=== PATIENT | female | born 1995 | race Caucasian/White ===

== ENCOUNTER 2017-04-28 21:32 | Emergency (ER) | payer OTHER ==
[2017-04-28] MEDS ORDERED: SODIUM CHLORIDE 0.9% 1,000 ML IV STA (22:13)
[2017-04-28] MEDS ORDERED: SODIUM CHLORIDE 0.9% 2,000 ML IV STA (22:13)
[2017-04-28] MEDS ORDERED: ONDANSETRON 4 MG/2 ML VIAL IVP STA (22:13)
--- NOTE | 2017-04-28 22:43 | ED ---
General Adult HPI - General Chief complaint: Nausea/Vomiting/Diarrhea Stated complaint: Cough Time Seen by Provider: 04/28/17 22:01 Source: patient, RN notes reviewed, old records reviewed Mode of arrival: ambulatory Limitations: no limitations - History of Present Illness Initial comments: Plain history of present illness this is a 22-year-old female who is approximately 9 weeks area she was in emergency room several weeks ago at that time her beta was 350 repeated 2 days later was over 700. The patient has not yet followed up with her first [facility] visit. Patient is 3 para 2. Her complaint is for the last several weeks she's had nausea and vomiting most all day long. No blood noted in the vomit. No vaginal discharge or bleeding or spotting. - Related Data Previous Rx's Medication Instructions Recorded Ondansetron Odt [Zofran Odt] 4 mg PO Q8HR PRN #10 tab 04/29/17 Allergies Allergy/AdvReac Type Severity Reaction Status Date / Time codeine phosphate AdvReac Yeast Verified 04/28/17 21:57 [From Tylenol-Codeine #3] Infection diphenhydramine AdvReac ANXIETY Verified 04/28/17 21:57 [From Benadryl] prochlorperazine maleate AdvReac Anxiety Verified 04/28/17 21:57 [From Compazine] Review of Systems ROS Statement: Those systems with pertinent positive or pertinent negative responses have been documented in the HPI. Of systems. No headache or visual acuity changes no chest pain or shortness of breath no abdominal pain just nausea and vomiting for several weeks. This is her third and she's had morning sickness that lasted all day long for the last several weeks. All systems are reviewed. Past medical problems nonsmoker nondrinker. Past history of anxiety and panic attacks other uncontrolled this time. Surgeries include adenoids and tonsils. Family history noncontributory. Patient has ALLERGIES to codeine and diphenhydramine and prochlorperazine. ROS Other: All systems not noted in ROS Statement are negative. Past Medical History Past Medical History: No Reported History Additional Past Medical History / Comment(s): panic attacks History of Any Multi-Drug Resistant Organisms: None Reported Past Surgical History: Adenoidectomy, Tonsillectomy Past Psychological History: Anxiety Smoking Status: Never smoker Past Alcohol Use History: None Reported Past Drug Use History: None Reported General Exam - General Exam Comments Initial Comments: General: The patient is awake and alert, in no distress, and does not appear acutely ill. Infrequent nausea and vomiting for the past several weeks. Vital signs shows tarry 97.0 pulse 94 respiratory rate 18 pulse ox on percent room air blood pressure 128/75 Eye: Pupils are equal, round and reactive to light, extra-ocular movements are intact ; there is normal conjunctiva bilaterally. No signs of icterus. Ears, nose, mouth and throat: There are moist mucous membranes and no oral lesions. Neck: The neck is supple, there is no tenderness no anterior cervical lymphadenopathy , no enlarged thyroid. Cardiovascular: There is a regular rate and rhythm. No murmur, rub or gallop is appreciated. Respiratory: Lungs are clear to auscultation, respirations are non-labored, breath sounds are equal. No wheezes, stridor, rales, or rhonchi. Gastrointestinal: Soft, non-distended, non-tender abdomen without masses or organomegaly noted. There is no rebound or guarding present. No CVA tenderness. Bowel sounds are unremarkable. No vomiting for several weeks. Back: There is no tenderness to palpation in the midline. There is no obvious deformity. No rashes noted. Musculoskeletal: Normal ROM, no tenderness, There is no pedal edema. There is no calf tenderness or swelling. Sensation intact. Neurological: Neuro deficits, no numbness no tingling. Balance is good. Skin: Skin is warm and dry and no rashes or lesions are noted. Psychiatric: history of anxiety but no problems now. Limitations: no limitations Course Vital Signs 04/28/17 04/28/17 04/29/17 21:54 23:35 00:41 Temperature 97 F L 97.5 F L 97.8 F Pulse Rate 94 78 80 Respiratory 18 19 19 Rate Blood Pressure 128/75 124/66 136/60 O2 Sat by Pulse 100 95 99 Oximetry Medical Decision Making - Medical Decision Making Medical decision making; patient's here because of hyperemesis gravidarum for the past several weeks. Patient bleach approximately 9-10 weeks . The patient's labs show white count of 10.4 hemoglobin 14 hematocrit of 42 with a BUN of 6 creatinine 0.6 GFR greater than 60. Glucose 96 and potassium 3.9. She'll receive 2 L of fluid. As well as IV zofran. Be discharged home with Zofran. Advised to follow-up with her [facility]. - Lab Data Result diagrams: 04/28/17 22:32 04/28/17 22:32 Lab Results 04/28/17 04/28/17 Range/Units 22:32 22:32 WBC 10.4 (3.8-10.6) k/uL RBC 4.61 (3.80-5.40) m/uL Hgb 14.3 (11.4-16.0) gm/dL Hct 42.7 (34.0-46.0) % MCV 92.6 (80.0-100.0) fL MCH 31.0 (25.0-35.0) pg MCHC 33.5 (31.0-37.0) g/dL RDW 14.4 (11.5-15.5) % Plt Count 242 (150-450) k/uL Neutrophils % 72 % Lymphocytes % 20 % Monocytes % 4 % Eosinophils % 2 % Basophils % 1 % Neutrophils # 7.5 (1.3-7.7) k/uL Lymphocytes # 2.1 (1.0-4.8) k/uL Monocytes # 0.4 (0-1.0) k/uL Eosinophils # 0.3 (0-0.7) k/uL Basophils # 0.1 (0-0.2) k/uL Sodium 139 (137-145) mmol/L Potassium 3.9 (3.5-5.1) mmol/L Chloride 106 (98-107) mmol/L Carbon Dioxide 24 (22-30) mmol/L Anion Gap 9 mmol/L BUN 6 L (7-17) mg/dL Creatinine 0.60 (0.52-1.04) mg/dL Est GFR (MDRD) Af Amer >60 (>60 ml/min/1.73 sqM) Est GFR (MDRD) Non-Af >60 (>60 ml/min/1.73 sqM) Glucose 96 (74-99) mg/dL Calcium 9.4 (8.4-10.2) mg/dL Total Bilirubin 1.1 (0.2-1.3) mg/dL AST 28 (14-36) U/L ALT 61 H (9-52) U/L Alkaline Phosphatase 72 (38-126) U/L Total Protein 6.9 (6.3-8.2) g/dL Albumin 3.9 (3.5-5.0) g/dL Disposition Clinical Impression: Hyperemesis gravidarum before end of 22 week gestation with carbohydrate depletion Disposition: HOME SELF-CARE Condition: Fair Instructions: Acute Nausea and Vomiting (ED) Additional Instructions: Zofran for nausea advanced diet follow-up [facility] Prescriptions: Ondansetron Odt [Zofran Odt] 4 mg PO Q8HR PRN #10 tab PRN Reason: Nausea Referrals: Johanna Cool MD [Primary Care Provider] - 1-2 days Time of Disposition: 00:51
[2017-04-28 22:45] LABS: Basophils # (A) 0.1 k/uL (0-0.2); Basophils % (A) 1 %; Eosinophils # (A) 0.3 k/uL (0-0.7); Eosinophils % (A) 2 %; HCT 42.7 % (34.0-46.0); HGB 14.3 gm/dL (11.4-16.0); Lymphocytes # (A) 2.1 k/uL (1.0-4.8); Lymphocytes % (A) 20 %; MCHC 33.5 g/dL (31.0-37.0); MCV 92.6 fL (80.0-100.0); Mean Platelet Volume 7.9; Monocytes # (A) 0.4 k/uL (0-1.0); Monocytes % (A) 4 %; Neutrophils # (A) 7.5 k/uL (1.3-7.7); Neutrophils % (A) 72 %; Platelet Count 242 k/uL (150-450); RBC 4.61 m/uL (3.80-5.40); RDW 14.4 % (11.5-15.5); WBC 10.4 k/uL (3.8-10.6)
[2017-04-28 22:58] LABS: ALT 61 U/L (9-52); AST 28 U/L (14-36); Albumin 3.9 g/dL (3.5-5.0); Alkaline Phosphatase 72 U/L (38-126); Anion Gap 9 mmol/L; Blood Urea Nitrogen 6 mg/dL (7-17); Calcium 9.4 mg/dL (8.4-10.2); Carbon Dioxide 24 mmol/L (22-30); Chloride 106 mmol/L (98-107); Glucose 96 mg/dL (74-99); Potassium 3.9 mmol/L (3.5-5.1); Sodium 139 mmol/L (137-145); Total Bilirubin 1.1 mg/dL (0.2-1.3); Total Protein 6.9 g/dL (6.3-8.2)
[2017-04-28 23:37] VITALS: RESP 19
[2017-04-29 00:43] VITALS: BP 136/60; PULSE 80; TEMP 97.8
== END 2017-04-29 01:00 | disposition home or self-care (01) ==
LOC: EC 21:32
DX: O21.1 Hyperemesis gravidarum with metabolic disturbance (principal); Z88.5 Allergy status to narcotic agent; Z88.8 Allergy status to other drugs, medicaments and biological substances
CPT/HCPCS: 36415; 80053; 85025; 99284; 96374; 96361 ×2; J2405

== ENCOUNTER 2017-07-04 21:52 | Emergency (ER) | payer OTHER ==
[2017-07-04 21:59] VITALS: PULSE 89; RESP 18
[2017-07-04 22:38] LABS: Appearance,Urine Cloudy (Clear); Bacteria,Urine Rare /hpf; Bilirubin,Urine Negative (Negative); Blood,Urine Negative (Negative); Calcium Oxalate Crystals,Urine Occasional /hpf; Color,Urine Yellow; Glucose,Urine (UA) Negative (Negative); Ketones,Urine Negative (Negative); Leukocyte Esterase,Urine Large (Negative); Mucus,Urine Rare /hpf; PH, Urine 6.5 (5.0-8.0); Protein,Urine Trace (Negative); RBC,Urine 5 /hpf (0-5); Specific Gravity,Urine 1.016 (1.001-1.035); Squamous Epithelial Cell,Urine 21 /hpf (0-4)
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
[2017-07-04 23:13] VITALS: BP 155/89; TEMP 98.1
== END 2017-07-04 23:13 | disposition home or self-care (01) ==
LOC: EC 21:52
DX: O99.89 Other specified diseases and conditions complicating pregnancy, childbirth and the puerperium (principal); R82.71 Bacteriuria; Z88.5 Allergy status to narcotic agent; Z88.8 Allergy status to other drugs, medicaments and biological substances; Z3A.18 18 weeks gestation of pregnancy; V48.9XXA Unspecified car occupant injured in noncollision transport accident in traffic accident, initial encounter; Y92.410 Unspecified street and highway as the place of occurrence of the external cause
CPT/HCPCS: 81001; 87086; 99284

== ENCOUNTER 2017-08-05 17:13 | Outpatient (CLI) | payer OTHER ==
[2017-08-05 17:48] LABS: Glucose,Whole Blood 91 mg/dL (75-99)
[2017-08-05 18:35] VITALS: BP 117/69; PULSE 80; RESP 18; TEMP 97.6
--- NOTE | 2017-09-18 12:27 | P.MSEPDOC ---
Presenting Problems - Arrival Data Date of Arrival on Unit: 08/05/17 Time of Arrival on Unit: 17:16 Mode of Transport: Ambulatory - Complaint OB-Reason for Admission/Chief Complaint: Other Comment: general malaise, nausea no vomit, headache, dizzy Medical History - Information : 3 Para: 2 Term: 2 : 0 Abortions: Spontaneous or Elective: 0 Number of Living Children: 2 - Gestational Age Gestational Age by EMEKA (wks/days): 21 Weeks and 6 Days Review of Systems - Review of Systems Constitutional: No problems Breast: No problems ENT: No problems Cardiovascular: No problems Respiratory: No problems Gastrointestinal: No problems Genitourinary: No problems Musculoskeletal: No problems Neurological: Dizziness Skin: No problems Vital Signs - Temperature Temperature: 97.6 F Temperature Source: Temporal Artery Scan - Pulse Right Brachial Pulse Rate: 80 Pulse Assessment Method: Automatic Cuff - Respirations Respiratory Rate: 18 Oxygen Delivery Method: Room Air O2 Sat by Pulse Oximetry: 98 - Blood Pressure Right Arm Blood Pressure: 117/69 Blood Pressure Mean: 85 Blood Pressure Source: Automatic Cuff Medical Screen Scoring (Pre) - Cervical Exam Dilation: Exam Deferred Effacement: Exam Deferred Membranes: Intact - Uterine Contractions Frequency: N/A Duration: N/A Intensity: N/A - Maternal Vital Signs Maternal Temperature: N/A Signs of Preeclampsia: N/A Maternal Respirations: N/A - Maternal Trauma Maternal Trauma: N/A - Assessment Baseline FHR: 136 - Total Score Total Score (Pre): 0 - Level of Risk Level of Risk: Low (0-5) Physician Notification (Pre) - Physician Notified Physician Notified Date: 08/05/17 Physician Notified Time: 17:36 Spoke With: Rajinder New Order Received: Yes - Notification Comment Comment: vitals wnl, cbg 91, discharge with follow up this week Disposition - Disposition OB Disposition: Triage, Discharge to home, Written follow up instructions reviewed Discharge Date: 08/05/17 Discharge Time: 17:50 I agree with the RN Medical Screening Exam: Yes Risk & Benefit of care provided described in d/c instruction: Yes Diagnosis: FALSE LABOR BEFORE 37 COMPLETED WEEKS OF GEST, THIRD TRI
== END 2017-08-05 17:50 | disposition home or self-care (01) ==
LOC: FBPOP 17:13
PROVIDERS: ATTEND Obstetrics & Gynecology
DX: O47.03 False labor before 37 completed weeks of gestation, third trimester (principal); Z3A.21 21 weeks gestation of pregnancy
CPT/HCPCS: 99213

== ENCOUNTER 2017-10-02 08:25 | Outpatient (CLI) | payer OTHER ==
[2017-10-02 09:57] VITALS: BP 105/53; PULSE 90; RESP 16; TEMP 96.7
--- NOTE | 2017-10-05 17:00 | P.MSEPDOC ---
Presenting Problems - Arrival Data Date of Arrival on Unit: 10/02/17 Time of Arrival on Unit: 08:26 Mode of Transport: Ambulatory - Complaint OB-Reason for Admission/Chief Complaint: Other Comment: vaginal discharge, pressure Medical History - Information : 3 Para: 2 Term: 2 : 0 Abortions: Spontaneous or Elective: 0 Number of Living Children: 2 - Gestational Age Gestational Age by EMEKA (wks/days): 30 Weeks and 1 Days Review of Systems - Review of Systems Constitutional: No problems Breast: No problems ENT: No problems Cardiovascular: No problems Respiratory: No problems Gastrointestinal: No problems Genitourinary: No problems Musculoskeletal: No problems Neurological: No problems Skin: No problems Vital Signs - Temperature Temperature: 96.7 F Temperature Source: Oral - Pulse Right Brachial Pulse Rate: 90 Pulse Assessment Method: Automatic Cuff - Respirations Respiratory Rate: 16 Oxygen Delivery Method: Room Air - Blood Pressure Right Arm Blood Pressure: 105/53 Blood Pressure Mean: 70 Blood Pressure Source: Automatic Cuff Medical Screen Scoring (Pre) - Cervical Exam Dilation: 0 cm = 0 - Uterine Contractions Frequency: N/A Duration: N/A Intensity: N/A - Maternal Vital Signs Maternal Temperature: N/A Maternal Blood Pressure: N/A Signs of Preeclampsia: N/A Maternal Respirations: N/A - Total Score Total Score (Pre): 0 - Level of Risk Level of Risk: N/A Medical Screen Scoring (Post) - Cervical Exam Dilation: 0 cm = 0 Effacement: Exam Deferred Membranes: Intact - Uterine Contractions Frequency: N/A Duration: N/A - Maternal Vital Signs Maternal Temperature: N/A Maternal Blood Pressure: N/A Signs of Preeclampsia: N/A Maternal Respirations: N/A - Pain Assessment Pain Location and Character: Pelvic Pain Scale Used: Numeric (1 - 10) Pain Intensity: 5 Pain Description: *Acute Pain Frequency: Daily Pain Duration Units: Days Pain Behavior: None Exhibited Pain Aggravating Factors: Activity, Walking - Maternal Trauma Maternal Trauma: N/A - Assessment Heart Rate: 130 Heart Rate - NICHD Category: Category I (Normal) = 0 NST: Reactive Position: N/A Station: N/A - Total Score Total Score (Post): 0 - Post Treatment Level of Risk Post Treatment Level of Risk: Low (0-5) Physician Notification (Post) - Physician Notified Physician Notified Date: 10/02/17 Physician Notified Time: 09:40 Physician/Practitioner Notified:: lesli Spoke With: lesli New Order Received: Yes - Notification Comment Comment: discharge home after cervical exam. pt to follow up this week Disposition - Disposition OB Disposition: Discharge to home Discharge Date: 10/02/17 Discharge Time: 09:55 I agree with the RN Medical Screening Exam: Yes Risk & Benefit of care provided described in d/c instruction: Yes Diagnosis: FALSE LABOR BEFORE 37 COMPLETED WEEKS OF GEST, THIRD TRI
== END 2017-10-02 09:58 | disposition home or self-care (01) ==
LOC: FBPOP 08:25
PROVIDERS: ATTEND Obstetrics & Gynecology
DX: O47.1 False labor at or after 37 completed weeks of gestation (principal); Z3A.30 30 weeks gestation of pregnancy
CPT/HCPCS: 59025; G0463; 99213

== ENCOUNTER 2017-10-31 01:20 | Outpatient (CLI) | payer OTHER ==
[2017-10-31] MEDS ORDERED: AMPICILLIN 2,000 MG in SODIUM CHLORIDE 0.9% 100 ML IVPB STA (01:49)
[2017-10-31] MEDS ORDERED: BETAMET ACET-BETAMETH SOD PHOS 6 MG/ML VIAL IM SCH (02:00)
[2017-10-31] MEDS ORDERED: LACTATED RINGERS 1,000 ML IV SCH (02:00)
[2017-10-31 02:15] LABS: Basophils % (A) 0 %; Eosinophils # (A) 0.1 k/uL (0-0.7); Eosinophils % (A) 1 %; HCT 34.2 % (34.0-46.0); Lymphocytes # (A) 2.7 k/uL (1.0-4.8); Lymphocytes % (A) 27 %; MCH 33.3 pg (25.0-35.0); MCV 95.4 fL (80.0-100.0); Mean Platelet Volume 7.9; Monocytes # (A) 0.4 k/uL (0-1.0); Monocytes % (A) 4 %; Neutrophils # (A) 6.5 k/uL (1.3-7.7); Neutrophils % (A) 66 %; Platelet Count 221 k/uL (150-450); Poikilocytosis Slight; RBC 3.59 m/uL (3.80-5.40); RDW 14.7 % (11.5-15.5); WBC 9.9 k/uL (3.8-10.6)
[2017-10-31 02:32] VITALS: BP 120/76; PULSE 86; RESP 16; TEMP 97
--- NOTE | 2017-10-31 03:34 | US ---
EXAMINATION TYPE: US OB >= 14 wk fetus DATE OF EXAM: 10/31/2017 COMPARISON: None CLINICAL HISTORY: premature ROMLeaking fluid exam limitations due to body habitus. TECHNIQUE: Transabdominal (TA) GESTATIONAL AGE / DATING Physician Established: (34 weeks/2 days) EDC: 12/10/2017 Dates by LMP: (34 weeks/2 days) EDC: 12/10/2017 Dates by First Scan: No previous this is first scan Dates by Current Scan: (34 weeks/1 days) EDC: 12/11/2017 SURVEY IUP: Single PLACENTA: Anterior PREVIA: No Previa MATHIEU: 9.4 cm Normal CERVICAL LENGTH (transabdominal: norm > 3.0cm): 3.6 cm BIOMETRY PRESENTATION: Vertex LIE: Transverse with head maternal L BPD: 8.9 cm 36 weeks / 0 days HC: 29.41 cm 32 weeks / 3 days AC: 29.43 cm 33 weeks / 3 days FL: 7.05 cm 36 weeks / 1 days ESTIMATED WEIGHT IN GRAMS: 2406 grams ESTIMATED WEIGHT IN LBS/OZ: 5 lbs. 5 oz. WEIGHT PERCENTAGE BASED ON ESTABLISHED DATES: 45.7% HC/AC: 1.00 cm Normal FL/AC: 23.95 cm Normal HEART RATE: 145 bpm RHYTHM: Normal MATERNAL WALL MEASUREMENT: 3.8 cm from skin to anterior uterine wall (if exam limited due to body hab itus). Viable IUP 34w 1d EMEKA 12/11/2017 HR 145 BPM IMPRESSION: The ultrasound gestational age is 34 weeks 1 day. No complicating process seen. Amniotic fluid is noel quate.
--- NOTE | 2017-10-31 03:48 | P.HPOB ---
History of Present Illness H&P Date: 10/31/17 Chief Complaint: Rupture of membranes This is a 22-year-old 3 para 2002 woman with an estimated due date of based on 9 week ultrasound. She presents with spontaneous rupture of membranes at approximately 9 PM on 10/30/2017. She was seen and evaluated in labor and delivery triage and rupture of membranes is confirmed. Upon initial presentation she has 2 cm, 50% effaced and the vertex in the -3 station. Following prolonged observation on she does have irregular contraction activity that the patient does not feel and her cervix remains unchanged. No vaginal bleeding, clear fluid. Bedside ultrasound reveals infant in the vertex presentation with an MATHIEU of 9.4 cm, estimated weight of 2406 g which is in the 45th percentile for 34 weeks and 2 days. heart tones are reassuring by external monitoring and she is deemed stable for transport. has been complicated by maternal obesity and diet-controlled gestational diabetes that was diagnosed in the third trimester. Her obstetrical history is significant for term normal spontaneous vaginal deliveries in 2010 and 2013. Laboratory data reveals blood type A positive, antibody screen negative, rubella immune, VDRL nonreactive, hepatitis B surface antigen negative, HIV negative, group B strep unknown, 3 hour glucose tolerance testing elevated, gonorrhea and chlamydia cultures negative. Review of Systems All systems: negative Past Medical History Past Medical History: No Reported History Additional Past Medical History / Comment(s): panic attacks History of Any Multi-Drug Resistant Organisms: None Reported Past Surgical History: Adenoidectomy, Tonsillectomy Smoking Status: Former smoker Medications and Allergies Home Medications Medication Instructions Recorded Confirmed Type Pnv,Calcium 72/Iron/Folic Acid 1 tab PO DAILY 07/04/17 07/04/17 History [ Plus Tablet] Allergies Allergy/AdvReac Type Severity Reaction Status Date / Time codeine phosphate AdvReac Yeast Verified 10/31/17 01:47 [From Tylenol-Codeine #3] Infection diphenhydramine AdvReac ANXIETY Verified 10/31/17 01:47 [From Benadryl] prochlorperazine maleate AdvReac Anxiety Verified 10/31/17 01:47 [From Compazine] Exam Vital Signs Temp Pulse Resp BP Pulse Ox 10/31/17 02:27 97.0 F L 86 16 120/76 98 Intake and Output 10/30/17 10/30/17 10/31/17 14:59 22:59 06:59 Other: Weight 129.727 kg This is a pleasant, comfortable appearing obese female. HEENT exam is unremarkable. Lungs are clear to auscultation bilaterally. The heart is a regular rate and rhythm. The abdomen is obese soft and nontender. Uterus is soft and nontender. On pelvic examination she is 2 cm, 50% effaced vertex in the -3 station with the head well applied. Small amount of clear fluid is noted. She has 1+ bilateral lower extremity edema. On external monitoring status is reassuring for gestational age. She is fernando every 2-6 minutes mildly. Results Result Diagrams: 10/31/17 02:00 Abnormal Lab Results - Last 24 Hours (Table) 10/31/17 Range/Units 02:00 RBC 3.59 L (3.80-5.40) m/uL Assessment and Plan (1) Gestational diabetes Current Visit: Yes Status: Acute Code(s): O24.419 - GESTATIONAL DIABETES MELLITUS IN , UNSP CONTROL SNOMED Code(s): 54943701 (2) Obesity Current Visit: Yes Status: Acute Code(s): E66.9 - OBESITY, UNSPECIFIED SNOMED Code(s): 675041127 (3) Premature rupture of membranes Current Visit: Yes Status: Acute Code(s): O42.90 - NELLY ROM, 7TH0 BETW RUPT & ONST LABR, UNSP WEEKS OF GEST SNOMED Code(s): 03323631 Plan: This is a 22-year-old 3 para 2001 woman at 34-2/7 weeks' gestation with spontaneous rupture of membranes not in active labor. She has been observed on over time with no change in cervical dilation or onset of labor. She has received a single dose of betamethasone as well as ampicillin group B strep prophylaxis. status is reassuring. Case was discussed with the resident at [facility] and transfer was accepted. Transfer was reviewed with the patient and the father of the baby and they understand small risk of the labor and delivery on transport which I believe is very low. They understand for transport is for an ICU care there is not available here.
[2017-10-31] MEDS ORDERED: AMPICILLIN 1,000 MG in SODIUM CHLORIDE 0.9% 50 ML IVPB SCH (06:00)
== END 2017-10-31 03:57 ==
LOC: FBPOP 01:20
PROVIDERS: ATTEND Obstetrics & Gynecology
DX: O42.90 Premature rupture of membranes, unspecified as to length of time between rupture and onset of labor, unspecified weeks of gestation (principal); O24.419 Gestational diabetes mellitus in pregnancy, unspecified control; E66.9 Obesity, unspecified; Z68.42 Body mass index [BMI] 45.0-49.9, adult; Z3A.34 34 weeks gestation of pregnancy; Z87.891 Personal history of nicotine dependence; Z79.899 Other long term (current) drug therapy; Z88.5 Allergy status to narcotic agent; Z88.8 Allergy status to other drugs, medicaments and biological substances; Z90.89 Acquired absence of other organs
CPT/HCPCS: 59025; 96360; 96361; 96367; 96372; 84112; 85025; 76805; G0463; J0702; J0290; 99214

== ENCOUNTER 2018-07-01 21:08 | Emergency (ER) | payer OTHER ==
[2018-07-01] MEDS ORDERED: SODIUM CHLORIDE 0.9% 1,000 ML IV ONE (21:43)
[2018-07-01 21:59] LABS: Appearance,Urine Clear (Clear); Bilirubin,Urine Negative (Negative); Blood,Urine Negative (Negative); Color,Urine Yellow; Glucose,Urine (UA) Negative (Negative); Ketones,Urine Negative (Negative); Leukocyte Esterase,Urine Negative (Negative); Nitrite,Urine Negative (Negative); Protein,Urine Negative (Negative); Specific Gravity,Urine 1.016 (1.001-1.035); Urobilinogen,Urine <2.0 mg/dL (<2.0)
[2018-07-01 22:39] LABS: Basophils # (A) 0.1 k/uL (0-0.2); Basophils % (A) 1 %; Eosinophils # (A) 0.2 k/uL (0-0.7); Eosinophils % (A) 2 %; HCT 39.5 % (34.0-46.0); HGB 13.5 gm/dL (11.4-16.0); Lymphocytes # (A) 3.5 k/uL (1.0-4.8); Lymphocytes % (A) 31 %; MCH 30.2 pg (25.0-35.0); MCHC 34.2 g/dL (31.0-37.0); MCV 88.4 fL (80.0-100.0); Mean Platelet Volume 7.7; Monocytes # (A) 0.5 k/uL (0-1.0); Monocytes % (A) 4 %; Neutrophils # (A) 6.8 k/uL (1.3-7.7); Neutrophils % (A) 61 %; Platelet Count 279 k/uL (150-450); RBC 4.47 m/uL (3.80-5.40); RDW 13.8 % (11.5-15.5); WBC 11.1 k/uL (3.8-10.6)
[2018-07-01 22:48] LABS: ALT 27 U/L (9-52); AST 15 U/L (14-36); Albumin 3.9 g/dL (3.5-5.0); Alkaline Phosphatase 81 U/L (38-126); Anion Gap 7 mmol/L; Blood Urea Nitrogen 9 mg/dL (7-17); Calcium 9.3 mg/dL (8.4-10.2); Carbon Dioxide 27 mmol/L (22-30); Chloride 105 mmol/L (98-107); Glucose 99 mg/dL (74-99); Potassium 3.6 mmol/L (3.5-5.1); Sodium 139 mmol/L (137-145); Total Bilirubin 0.7 mg/dL (0.2-1.3)
[2018-07-01 23:05] LABS: HCG,Quantitative Serum 1679.2 mIU/mL
--- NOTE | 2018-07-01 23:51 | ED ---
General Adult HPI - General Chief complaint: Urogenital Stated complaint: & spotting Time Seen by Provider: 07/01/18 21:17 Source: patient, RN notes reviewed Mode of arrival: ambulatory Limitations: no limitations - History of Present Illness Initial comments: 23-year-old female currently about 7 weeks presents to the emergency department for a chief complaint of vaginal bleeding. Patient states she has had pelvic cramping for the past several weeks. She states that today she had some right red spotting. Patient is concerned she may be having a miscarriage. Patient denies any previous miscarriages. Patient has not yet had a confirmed intrauterine . Patient follows with Dr. Gomez and was an appointment with him next week. Patient has no other complaints at this time including shortness of breath, chest pain, abdominal pain, nausea or vomiting, headache, or visual changes. - Related Data Home Medications Medication Instructions Recorded Confirmed Pnv,Calcium 72/Iron/Folic Acid 1 tab PO DAILY 07/04/17 07/01/18 [ Plus Tablet] Allergies Allergy/AdvReac Type Severity Reaction Status Date / Time codeine phosphate AdvReac Yeast Verified 07/01/18 22:09 [From Tylenol-Codeine #3] Infection diphenhydramine AdvReac ANXIETY Verified 07/01/18 22:09 [From Benadryl] prochlorperazine maleate AdvReac Anxiety Verified 07/01/18 22:09 [From Compazine] Review of Systems ROS Statement: Those systems with pertinent positive or pertinent negative responses have been documented in the HPI. ROS Other: All systems not noted in ROS Statement are negative. Past Medical History Past Medical History: No Reported History Additional Past Medical History / Comment(s): panic attacks History of Any Multi-Drug Resistant Organisms: None Reported Past Surgical History: Adenoidectomy, Tonsillectomy Past Psychological History: Anxiety, Panic Disorder Smoking Status: Former smoker General Exam Limitations: no limitations General appearance: alert, in no apparent distress Head exam: Present: atraumatic, normocephalic, normal inspection Eye exam: Present: normal appearance, PERRL, EOMI. Absent: scleral icterus, conjunctival injection, periorbital swelling ENT exam: Present: normal exam, mucous membranes moist Neck exam: Present: normal inspection, full ROM. Absent: tenderness, meningismus, lymphadenopathy Respiratory exam: Present: normal lung sounds bilaterally. Absent: respiratory distress, wheezes, rales, rhonchi, stridor Cardiovascular Exam: Present: regular rate, normal rhythm, normal heart sounds. Absent: systolic murmur, diastolic murmur, rubs, gallop, clicks GI/Abdominal exam: Present: soft, normal bowel sounds. Absent: distended, tenderness, guarding, rebound, rigid External exam: Present: normal external exam. Absent: erythema, swelling, lesions, lacerations, ecchymosis Speculum exam: Present: normal speculum exam. Absent: erythema, vaginal discharge, cervical discharge, vaginal bleeding, foreign body, tissue, laceration By manual exam: Present: normal by manual exam. Absent: cervical motion tenderness, adnexal tenderness, adnexal mass, uterine enlargement, uterine tenderness Neurological exam: Present: alert, oriented X3, CN II-XII intact Psychiatric exam: Present: normal affect, normal mood Course Vital Signs 07/01/18 07/01/18 21:34 22:28 Temperature 98.4 F Pulse Rate 94 87 Respiratory 16 20 Rate Blood Pressure 149/96 145/81 O2 Sat by Pulse 100 99 Oximetry Medical Decision Making - Medical Decision Making 23-year-old female presents to the emergency department for a chief complaint of vaginal bleeding. Patient is currently 7 weeks . Pelvic exam did not reveal any bleeding at this time. No tenderness on exam. CBC and CMP are unremarkable.HCG Quant is 1679 which can be normal for 7 weeks. A urinalysis is negative.Ultrasound shows a hypoechoic structure within the uterus that may represent an early gestational sac. At this time patient is likely this experiencing a threatened miscarriage. Patient has a positive blood type, does not require RhoGAM at this time. Patient will repeat beta hCG 2 days or melena will follow-up with her [facility]. She is already established with [facility] and does have an appointment next week. - Lab Data Result diagrams: 07/01/18 22:25 07/01/18 22:25 Lab Results 07/01/18 07/01/18 07/01/18 Range/Units 20:45 20:45 22:25 WBC 11.1 H (3.8-10.6) k/uL RBC 4.47 (3.80-5.40) m/uL Hgb 13.5 (11.4-16.0) gm/dL Hct 39.5 (34.0-46.0) % MCV 88.4 (80.0-100.0) fL MCH 30.2 (25.0-35.0) pg MCHC 34.2 (31.0-37.0) g/dL RDW 13.8 (11.5-15.5) % Plt Count 279 (150-450) k/uL Neutrophils % 61 % Lymphocytes % 31 % Monocytes % 4 % Eosinophils % 2 % Basophils % 1 % Neutrophils # 6.8 (1.3-7.7) k/uL Lymphocytes # 3.5 (1.0-4.8) k/uL Monocytes # 0.5 (0-1.0) k/uL Eosinophils # 0.2 (0-0.7) k/uL Basophils # 0.1 (0-0.2) k/uL Sodium (137-145) mmol/L Potassium (3.5-5.1) mmol/L Chloride (98-107) mmol/L Carbon Dioxide (22-30) mmol/L Anion Gap mmol/L BUN (7-17) mg/dL Creatinine (0.52-1.04) mg/dL Est GFR (CKD-EPI)AfAm (>60 ml/min/1.73 sqM) Est GFR (CKD-EPI)NonAf (>60 ml/min/1.73 sqM) Glucose (74-99) mg/dL Calcium (8.4-10.2) mg/dL Total Bilirubin (0.2-1.3) mg/dL AST (14-36) U/L ALT (9-52) U/L Alkaline Phosphatase (38-126) U/L Total Protein (6.3-8.2) g/dL Albumin (3.5-5.0) g/dL HCG, Quant mIU/mL Urine Color Yellow Urine Appearance Clear (Clear) Urine pH 6.0 (5.0-8.0) Ur Specific [place] 1.016 (1.001-1.035) Urine Protein Negative (Negative) Urine Glucose (UA) Negative (Negative) Urine Ketones Negative (Negative) Urine Blood Negative (Negative) Urine Nitrite Negative (Negative) Urine Bilirubin Negative (Negative) Urine Urobilinogen <2.0 (<2.0) mg/dL Ur Leukocyte Esterase Negative (Negative) Urine HCG, Qual Detected (Not Detectd) Trichomonas Ag (Rapid) (Negative) Blood Type Blood Type Recheck 07/01/18 07/01/18 07/01/18 Range/Units 22:25 22:25 22:25 WBC (3.8-10.6) k/uL RBC (3.80-5.40) m/uL Hgb (11.4-16.0) gm/dL Hct (34.0-46.0) % MCV (80.0-100.0) fL MCH (25.0-35.0) pg MCHC (31.0-37.0) g/dL RDW (11.5-15.5) % Plt Count (150-450) k/uL Neutrophils % % Lymphocytes % % Monocytes % % Eosinophils % % Basophils % % Neutrophils # (1.3-7.7) k/uL Lymphocytes # (1.0-4.8) k/uL Monocytes # (0-1.0) k/uL Eosinophils # (0-0.7) k/uL Basophils # (0-0.2) k/uL Sodium 139 (137-145) mmol/L Potassium 3.6 (3.5-5.1) mmol/L Chloride 105 (98-107) mmol/L Carbon Dioxide 27 (22-30) mmol/L Anion Gap 7 mmol/L BUN 9 (7-17) mg/dL Creatinine 0.68 (0.52-1.04) mg/dL Est GFR (CKD-EPI)AfAm >90 (>60 ml/min/1.73 sqM) Est GFR (CKD-EPI)NonAf >90 (>60 ml/min/1.73 sqM) Glucose 99 (74-99) mg/dL Calcium 9.3 (8.4-10.2) mg/dL Total Bilirubin 0.7 (0.2-1.3) mg/dL AST 15 (14-36) U/L ALT 27 (9-52) U/L Alkaline Phosphatase 81 (38-126) U/L Total Protein 7.0 (6.3-8.2) g/dL Albumin 3.9 (3.5-5.0) g/dL HCG, Quant 1679.2 mIU/mL Urine Color Urine Appearance (Clear) Urine pH (5.0-8.0) Ur Specific [place] (1.001-1.035) Urine Protein (Negative) Urine Glucose (UA) (Negative) Urine Ketones (Negative) Urine Blood (Negative) Urine Nitrite (Negative) Urine Bilirubin (Negative) Urine Urobilinogen (<2.0) mg/dL Ur Leukocyte Esterase (Negative) Urine HCG, Qual (Not Detectd) Trichomonas Ag (Rapid) Negative (Negative) Blood Type A Positive Blood Type Recheck No Disposition Clinical Impression: Threatened miscarriage Disposition: HOME SELF-CARE Condition: Good Instructions (If sedation given, give patient instructions): Threatened Miscarriage (ED) Additional Instructions: Please repeat blood work in 2 days. Please follow-up with [facility] in 1-2 days. Return to the emergency department if you have any worsening symptoms. Is patient prescribed a controlled substance at d/c from ED?: No Referrals: Johanna Cool MD [Primary Care Provider] - 1-2 days Time of Disposition: 23:50
--- NOTE | 2018-07-02 00:11 | US ---
EXAM: US First Trimester, Transabdominal CLINICAL HISTORY: ITS.REASON US Reason: Pain TECHNIQUE: Real-time transabdominal obstetrical ultrasound of the maternal pelvis and a first trimester with image documentation. COMPARISON: No relevant prior studies available. FINDINGS: Limited transabdominal study demonstrates a hypoechoic structure in the uterus which may represent early gestational sac measuring 7 mm. A 2 cm hypoechoic structure is seen in the right ovary, possible corpus luteal cyst. No significant free fluid is visualized. Measurements: Uterus: 11.8 x 4.7 x 7.1 cm Right Ovary: 3.2 x 2.9 x 3.2 cm Left Ovary: 2.7 x 1.6 x 2.0 cm IMPRESSION: Hypoechoic structure in the uterus may represent early gestational sac. Correlate with serial beta hCG/followup ultrasound as clinically indicated.
[2018-07-02 00:31] VITALS: BP 141/80; PULSE 81; RESP 18; TEMP 98.1
[2018-07-02 13:19] LABS: N. gonorrhoeae,PCR Negative (Neg,Equiv); Neisseria Source Vagina
[2018-07-02 13:43] LABS: C. trachomatis,PCR Negative (Neg,Equiv); Chlamydia trachomatis Source Vagina
== END 2018-07-02 00:36 | disposition home or self-care (01) ==
LOC: EC 21:08
DX: O20.0 Threatened abortion (principal); Z3A.01 Less than 8 weeks gestation of pregnancy; Z88.5 Allergy status to narcotic agent; Z88.8 Allergy status to other drugs, medicaments and biological substances; Z88.6 Allergy status to analgesic agent; Z87.891 Personal history of nicotine dependence
CPT/HCPCS: 36415; 76801; 80053; 81003; 81025; 84702; 85025; 86900; 86901; 87491; 87591; 87808; 96360; 96361; 99284

== ENCOUNTER → 2018-07-03 | Outpatient (CLI) | payer OTHER | END | disposition home or self-care (01) | LOC: LABWHC1 08:48 | PROVIDERS: ATTEND Physician Assistant Medical | DX: O20.0 Threatened abortion (principal); Z3A.00 Weeks of gestation of pregnancy not specified | CPT/HCPCS: 36415; 84702 ==

== ENCOUNTER 2018-07-05 12:57 | Emergency (ER) | payer OTHER ==
[2018-07-05 13:11] VITALS: RESP 18; TEMP 98.5
[2018-07-05] MEDS ORDERED: SODIUM CHLORIDE 0.9% 1,000 ML IV ONE (13:24)
[2018-07-05 14:12] LABS: Basophils % (A) 0 %; Eosinophils # (A) 0.2 k/uL (0-0.7); Eosinophils % (A) 2 %; HGB 13.9 gm/dL (11.4-16.0); Lymphocytes # (A) 2.3 k/uL (1.0-4.8); Lymphocytes % (A) 23 %; MCH 30.4 pg (25.0-35.0); MCHC 33.8 g/dL (31.0-37.0); MCV 89.9 fL (80.0-100.0); Mean Platelet Volume 7.4; Monocytes # (A) 0.4 k/uL (0-1.0); Monocytes % (A) 4 %; Neutrophils % (A) 70 %; Platelet Count 267 k/uL (150-450); RBC 4.56 m/uL (3.80-5.40)
[2018-07-05 14:22] LABS: ALT 33 U/L (9-52); AST 16 U/L (14-36); Albumin 4.3 g/dL (3.5-5.0); Alkaline Phosphatase 75 U/L (38-126); Anion Gap 10 mmol/L; Blood Urea Nitrogen 10 mg/dL (7-17); Calcium 9.2 mg/dL (8.4-10.2); Carbon Dioxide 25 mmol/L (22-30); Chloride 105 mmol/L (98-107); Glucose 89 mg/dL (74-99); Potassium 4.2 mmol/L (3.5-5.1); Sodium 140 mmol/L (137-145); Total Bilirubin 0.7 mg/dL (0.2-1.3); Total Protein 7.5 g/dL (6.3-8.2)
[2018-07-05 14:39] LABS: HCG,Quantitative Serum 2258.8 mIU/mL
--- NOTE | 2018-07-05 15:21 | US ---
EXAMINATION TYPE: Transabdominal DATE OF EXAM: 07/05/2018 3:10 PM COMPARISON: US 07/01/2018 CLINICAL HISTORY: pain. spotting EXAM PERFORMED: Transvaginal (TV) and Transabdominal (TA) EXAM MEASUREMENTS: GESTATIONAL AGE / DATING Physician Established: Not yet established Dates by LMP: (6 weeks/5 days) EDC: 02/23/2019 Dates by First Scan: No pole visualized on previous Dates by Current Scan for: Too small to date MATERNAL ANATOMY Uterus: 10.4 x 4.2 x 6.2 cm Right Ovary: 3.2 x 2.7 x 2.7 cm Left Ovary: 1.9 x 1.3 x 1.5 cm Post CDS / Adnexa: wnl Presence of free fluid: No Presence of corpus luteal cyst: Yes, right ovary measuring1.6 x 1.6 x 1.2 cm Presence of subchorionic bleed: No GESTATION / SURVEY MSD: 0.8 cm - too small to date Yolk Sac (normal less than 6mm): 2 mm IUP: No pole visualized. Probable early gestational sac visualized measuring 0.8 cm with proba ble yolk sac measuring 0.2 cm Date of LMP: 05/19/2018 Beta HcG (if available): Not available at this time No pole visualized. Possible early gestational sac visualized measuring 0.8 cm with probable yo lk sac measuring 0.2 cm IMPRESSION: No pole identified. There is a fluid-filled sac with a questionable yolk sac. Differential diag nosis would include an early too early to detect. Pseudogestational sac of ectopic pregnanc y not entirely excluded correlate clinically. Serial beta hCG and pelvic ultrasound recommended as cl inically warranted.
--- NOTE | 2018-07-05 15:42 | ED ---
Female Urogenital HPI - General Chief complaint: Vaginal Bleeding Stated complaint: Vaginal Bleeding-7 wks Time Seen by Provider: 07/05/18 13:23 Source: patient Mode of arrival: ambulatory Limitations: no limitations - History of Present Illness Initial comments: 23-year-old female presenting today for chief complaint of vaginal spotting with mild abdominal cramping. Patient states that since Sunday she has had light pink spotting he states is only when she wipes she denies it being in her underwear. Patient states that the ultrasound obtained at that time was transabdominal and revealed possible sac she states she thought she was about 6- 7 weeks . Patient states today she continues to spot she says it seemed to increase. Patient denies any increased cramping she states is not severe. Patient states she had a repeat hCG as recommended however it did not double. She states this was concerning. Patient presents today for evaluation of increased spotting and repeat quantitative hCG. Patient states her blood type on Sunday was confirmed as a positive. No Rhogam was indicated at this time. Remaining review of systems negative, patient denies any recent fever, chills, shortness of breath, chest pain, back pain, nausea or vomiting, numbness or tingling, dysuria or hematuria, constipation or diarrhea, headaches or visual changes, or any other complaints. Last Menstrual Period: 05/19/18 - Related Data Home Medications Medication Instructions Recorded Confirmed Pnv,Calcium 72/Iron/Folic Acid 1 tab PO HS 07/04/17 07/05/18 [ Plus Tablet] Allergies Allergy/AdvReac Type Severity Reaction Status Date / Time codeine phosphate AdvReac Yeast Verified 07/05/18 13:36 [From Tylenol-Codeine #3] Infection diphenhydramine AdvReac ANXIETY Verified 07/05/18 13:36 [From Benadryl] prochlorperazine maleate AdvReac Anxiety Verified 07/05/18 13:36 [From Compazine] Review of Systems ROS Statement: Those systems with pertinent positive or pertinent negative responses have been documented in the HPI. ROS Other: All systems not noted in ROS Statement are negative. Past Medical History Past Medical History: No Reported History Additional Past Medical History / Comment(s): panic attacks History of Any Multi-Drug Resistant Organisms: None Reported Past Surgical History: Adenoidectomy, Tonsillectomy Past Psychological History: Anxiety, Panic Disorder Smoking Status: Current every day smoker Past Alcohol Use History: None Reported Past Drug Use History: None Reported General Exam - General Exam Comments Initial Comments: General: The patient is awake and alert, in no distress, and does not appear acutely ill. Eye: +3 mm pupils are equal, round and reactive to light, extra-ocular movements are intact. No nystagmus. There is normal conjunctiva bilaterally. No signs of icterus. Ears, nose, mouth and throat: There are moist mucous membranes and no oral lesions. Neck: The neck is supple, there is no tenderness or JVD. Cardiovascular: There is a regular rate and rhythm. No murmur, rub or gallop is appreciated. Respiratory: Lungs are clear to auscultation, respirations are non-labored, breath sounds are equal. No wheezes, stridor, rales, or rhonchi. Gastrointestinal: Soft, non-distended, non-tender abdomen without masses or organomegaly noted. There is no rebound or guarding present. No CVA tenderness. Bowel sounds are unremarkable. Pelvic exam: No external lesions, vaginal mucosa pink and well rugated. No significant vaginal discharge. Small amount of brownish pink blood in vault. Cervical os closed. No adenexal or cervical motion tenderness. Musculoskeletal: Normal ROM, no tenderness. Strength 5/5. Sensation intact. Pulses equal bilaterally 2+. Neurological: A&O x 3. CN II-XII intact, There are no obvious motor or sensory deficits. Coordination appears grossly intact. Speech is normal. Skin: Skin is warm and dry and no rashes or lesions are noted. Psychiatric: Cooperative, appropriate mood & affect, normal judgment. Limitations: no limitations Course Vital Signs 07/05/18 07/05/18 13:08 16:10 Temperature 98.5 F Pulse Rate 90 71 Respiratory 18 18 Rate Blood Pressure 117/72 112/71 O2 Sat by Pulse 98 100 Oximetry Medical Decision Making - Medical Decision Making 23-year-old female presenting today for chief complaint of continued vaginal spotting. Patient states ultrasound revealed a sac, no heartbeat. Patient states she thought she was around 6-7 weeks . Ultrasound today revealed a possible sac intrauterine. However ectopic was not able to be ruled out. Serum HCG did increase since Sunday however did not double. She denies any significant pain there is no specific tenderness on examination. No adnexal tenderness. Cervical os closed. Small amount of noticed pink blood in vault. No significant bright red bleeding. No evidence of laceration. Patient's h emoglobin stable. Patient appears well, comfortable in no acute distress. This I feel patient is stable for discharge with diagnosis of threatened miscarriage and close [facility] follow-up for serial ultrasound as well as repeat hCG. Patient provided prescription for repeat hCG to be performed in 2 days. In addition patient states she has an appointment scheduled for [facility] on this upcoming Sunday. She agreeable discharge and plan denied questions at this time. I discussed the case attending provider Dr. Javier prior to patient's discharge. - Lab Data Result diagrams: 07/05/18 14:00 07/05/18 14:00 Lab Results 07/05/18 07/05/18 07/05/18 Range/Units 14:00 14:00 15:56 WBC 10.0 (3.8-10.6) k/uL RBC 4.56 (3.80-5.40) m/uL Hgb 13.9 (11.4-16.0) gm/dL Hct 41.0 (34.0-46.0) % MCV 89.9 (80.0-100.0) fL MCH 30.4 (25.0-35.0) pg MCHC 33.8 (31.0-37.0) g/dL RDW 14.0 (11.5-15.5) % Plt Count 267 (150-450) k/uL Neutrophils % 70 % Lymphocytes % 23 % Monocytes % 4 % Eosinophils % 2 % Basophils % 0 % Neutrophils # 7.0 (1.3-7.7) k/uL Lymphocytes # 2.3 (1.0-4.8) k/uL Monocytes # 0.4 (0-1.0) k/uL Eosinophils # 0.2 (0-0.7) k/uL Basophils # 0.0 (0-0.2) k/uL Sodium 140 (137-145) mmol/L Potassium 4.2 (3.5-5.1) mmol/L Chloride 105 (98-107) mmol/L Carbon Dioxide 25 (22-30) mmol/L Anion Gap 10 mmol/L BUN 10 (7-17) mg/dL Creatinine 0.69 (0.52-1.04) mg/dL Est GFR (CKD-EPI)AfAm >90 (>60 ml/min/1.73 sqM) Est GFR (CKD-EPI)NonAf >90 (>60 ml/min/1.73 sqM) Glucose 89 (74-99) mg/dL Calcium 9.2 (8.4-10.2) mg/dL Total Bilirubin 0.7 (0.2-1.3) mg/dL AST 16 (14-36) U/L ALT 33 (9-52) U/L Alkaline Phosphatase 75 (38-126) U/L Total Protein 7.5 (6.3-8.2) g/dL Albumin 4.3 (3.5-5.0) g/dL HCG, Quant 2258.8 mIU/mL Trichomonas Ag (Rapid) Negative (Negative) Disposition Clinical Impression: Vaginal bleeding affecting early , Threatened Disposition: HOME SELF-CARE Condition: Good Instructions (If sedation given, give patient instructions): Threatened Miscarriage (ED) Additional Instructions: Please use medication as discussed. Please follow-up with OBGYN on Sunday as scheduled. Please repeat HCG in 48 hours. Please obtained repeat US within next 1-2 weeks. Please return to emergency room if the symptoms increase or worsen or for any other concerns, including abdominal pain, heavy bleeding. Is patient prescribed a controlled substance at d/c from ED?: No Referrals: Johanna Cool MD [Primary Care Provider] - 1-2 days Time of Disposition: 15:42
[2018-07-05 16:11] VITALS: BP 112/71; PULSE 71
== END 2018-07-05 16:10 | disposition home or self-care (01) ==
LOC: EC 12:57
DX: O20.0 Threatened abortion (principal); O99.331 Smoking (tobacco) complicating pregnancy, first trimester; F17.200 Nicotine dependence, unspecified, uncomplicated; Z3A.01 Less than 8 weeks gestation of pregnancy; Z88.5 Allergy status to narcotic agent; Z88.8 Allergy status to other drugs, medicaments and biological substances
CPT/HCPCS: 36415; 76801; 76817; 80053; 84702; 85025; 87070; 87205; 87491; 87591; 87808; 96360; 99284

== ENCOUNTER → 2018-07-08 | Outpatient (CLI) | payer OTHER | END | disposition home or self-care (01) | LOC: LABWHC1 08:17 | PROVIDERS: ATTEND Physician Assistant Medical | DX: O20.0 Threatened abortion (principal); O20.9 Hemorrhage in early pregnancy, unspecified; Z3A.00 Weeks of gestation of pregnancy not specified | CPT/HCPCS: 36415; 84702 ==

== ENCOUNTER → 2018-07-11 | Outpatient (CLI) | payer OTHER ==
[2018-07-11 16:30] LABS: Basophils # (A) 0.1 k/uL (0-0.2); Basophils % (A) 1 %; Eosinophils # (A) 0.3 k/uL (0-0.7); Eosinophils % (A) 2 %; HCT 39.4 % (34.0-46.0); HGB 13.3 gm/dL (11.4-16.0); Lymphocytes # (A) 2.6 k/uL (1.0-4.8); Lymphocytes % (A) 24 %; MCH 30.2 pg (25.0-35.0); MCHC 33.7 g/dL (31.0-37.0); MCV 89.6 fL (80.0-100.0); Mean Platelet Volume 7.2; Monocytes # (A) 0.3 k/uL (0-1.0); Monocytes % (A) 3 %; Neutrophils # (A) 7.7 k/uL (1.3-7.7); Neutrophils % (A) 71 %; Platelet Count 291 k/uL (150-450); RDW 13.7 % (11.5-15.5); WBC 10.9 k/uL (3.8-10.6)
== END | disposition home or self-care (01) ==
LOC: LABWHC1 15:48
PROVIDERS: ATTEND Obstetrics & Gynecology
DX: Z01.812 Encounter for preprocedural laboratory examination (principal); O02.1 Missed abortion; Z3A.00 Weeks of gestation of pregnancy not specified
CPT/HCPCS: 36415; 84702; 85025

== ENCOUNTER → 2018-07-12 | Day surgery (SDC) | payer OTHER ==
[~2018-07-12] MED LIST: ACETAMINOPHEN TAB 325 MG TAB PO PRN; DEXAMETHASONE SOD PHOSPHATE 10 MG/ML 1 ML VIAL IV ONE; HYDROmorphone 0.5 MG/0.5 ML SYRINGE IVP PRN; KETOROLAC 30 MG/ML 1 ML VIAL IVP PRN; KETOROLAC 30 MG/ML 1 ML VIAL ONE; LACTATED RINGERS 1,000 ML IV SCH; LIDOCAINE 1% 20 ML VIAL (10MG/ML) FOR IV START INTRADERMA PRN; LIDOCAINE 1% INJ 10MG/ML (20 ML MDV) ONE; METOCLOPRAMIDE 5 MG/ML 2 ML VIAL IVP PRN; MIDAZOLAM (PF) 2 MG/2 ML VIAL IV PRN; MIDAZOLAM 2 MG/2 ML VIAL ONE; ONDANSETRON 4 MG/2 ML VIAL IVP ONE; ONDANSETRON 4 MG/2 ML VIAL IVP PRN; PROPOFOL 10 MG/ML 20 ML VIAL IV ONE; SCOPOLAMINE 1.5MG/72HR PATCH TRANSDERM ONE; SIMETHICONE 80 MG CHEWABLE PO PRN; SUCCINYLCHOLINE CHLORIDE 100 MG/5 ML SYR IV ONE; fentaNYL (PF) 50 MCG/ML 2 ML AMP ONE
--- NOTE | 2018-07-12 13:51 | P.OP ---
Date of Procedure: 07/12/18 Preoperative Diagnosis: #1. Six-week missed Postoperative Diagnosis: Same Procedure(s) Performed: #1. Dilation and aspiration curettage Anesthesia: GERMÁN Surgeon: Pravin Mireles Estimated Blood Loss (ml): 20 IV fluids (ml): 300 Urine output (ml): 150 Pathology: other (Intrauterine contents) Condition: stable Disposition: PACU Operative Findings: Preoperative pelvic examination demonstrated a roughly 6-7 week midplane normal uterus with normal adnexa bilaterally though the examination is limited by the patient's habitus. The uterus sounded to approximately 10 cm. The cervix was already dilated to a #19 Hanks dilator. Tissue was clearly seen passing through the tubing with a #8 curved aspiration curet. The typical gritty texture was encountered with a sharp curette. The patient is a poor candidate for vaginal hysterectomy should it become necessary. Description of Procedure: The patient was prepped and draped in usual fashion after general endotracheal anesthesia was administered by the anesthesiologist. A weighted speculum was placed and the bladder was drained of approximately 150 mL of clear alesia urine. The anterior lip of the cervix was grasped with a single-tooth tenaculum and the uterus sounded to 10 cm as noted above. The cervix was dilated to easily admit the largest cervical dilator, #19 Hanks dilator. A #8 curved aspiration curet was placed in the fundus of the uterus and suction applied. After adequate suction had been built, thorough and circumferential aspiration curettage was carried out from the fundus to the cervix. Tissue was clearly seen passing through the tubing. On the second pass, no further tissue was noted. The aspiration curet was replaced with a sharp curette which was utilized to again thoroughly and circumferentially curet the endometrial cavity with the typical gritty texture encountered throughout and no further discovery of any tissue. One last pass was made with the aspiration curet and the procedure abandoned. All instrumentation was removed and there was no ongoing bleeding either from the cervix or from the tenaculum site. Estimated blood loss for the entire case was approximately 20 mL. There are no complications. All sponge, instrument, and needle counts were correct. The patient tolerated the procedure well and proceeded to the recovery room in stable condition.
[2018-07-12 14:04] VITALS: TEMP 96.8
[2018-07-12 14:15] VITALS: RESP 16
[2018-07-12 14:44] VITALS: BP 128/74; PULSE 91
== END | disposition home or self-care (01) ==
LOC: OR 11:54
PROVIDERS: ATTEND Obstetrics & Gynecology
DX: O02.1 Missed abortion (principal); Z87.891 Personal history of nicotine dependence; O24.439 Gestational diabetes mellitus in the puerperium, unspecified control; O99.335 Smoking (tobacco) complicating the puerperium; F41.9 Anxiety disorder, unspecified; O99.215 Obesity complicating the puerperium; Z68.45 Body mass index [BMI] 70 or greater, adult; K21.9 Gastro-esophageal reflux disease without esophagitis; Z79.899 Other long term (current) drug therapy; Z88.5 Allergy status to narcotic agent; Z88.8 Allergy status to other drugs, medicaments and biological substances
CPT/HCPCS: 86900; 86901; 88305; 86850; 59820; J2250; J1100; J2405; J2001; J3010; J1885; J0330; J2704

== ENCOUNTER → 2018-09-09 | Outpatient (CLI) | payer OTHER | END | disposition home or self-care (01) | LOC: LABWHC1 12:15 | PROVIDERS: ATTEND Obstetrics & Gynecology | DX: O20.0 Threatened abortion (principal); Z3A.00 Weeks of gestation of pregnancy not specified | CPT/HCPCS: 36415; 84702 ==

== ENCOUNTER → 2018-09-13 | Outpatient (CLI) | payer OTHER | END | disposition home or self-care (01) | LOC: LABWHC1 08:20 | PROVIDERS: ATTEND Obstetrics & Gynecology | DX: O20.0 Threatened abortion (principal); Z3A.00 Weeks of gestation of pregnancy not specified | CPT/HCPCS: 36415; 84702 ==

== ENCOUNTER 2018-11-23 11:37 | Emergency (ER) | payer OTHER ==
[2018-11-23] MEDS ORDERED: SODIUM CHLORIDE 0.9% 1,000 ML IV STA (12:37)
[2018-11-23 12:55] LABS: ALT 29 U/L (9-52); AST 18 U/L (14-36); African American GFR (CKD) >90 (>60 ml/min/1.73 sqM); Albumin 3.9 g/dL (3.5-5.0); Alkaline Phosphatase 75 U/L (38-126); Amylase 49 U/L (30-110); Anion Gap 11 mmol/L; Blood Urea Nitrogen 7 mg/dL (7-17); Calcium 9.3 mg/dL (8.4-10.2); Carbon Dioxide 21 mmol/L (22-30); Chloride 108 mmol/L (98-107); Glucose 100 mg/dL (74-99); Sodium 140 mmol/L (137-145)
[2018-11-23 13:22] LABS: Basophils % (A) 0 %; Eosinophils # (A) 0.1 k/uL (0-0.7); Eosinophils % (A) 1 %; HCT 36.1 % (34.0-46.0); HGB 12.8 gm/dL (11.4-16.0); Lymphocytes # (A) 1.6 k/uL (1.0-4.8); Lymphocytes % (A) 14 %; MCH 32.2 pg (25.0-35.0); MCHC 35.4 g/dL (31.0-37.0); MCV 91.1 fL (80.0-100.0); Mean Platelet Volume 7.5; Monocytes # (A) 0.3 k/uL (0-1.0); Monocytes % (A) 3 %; Neutrophils # (A) 9.5 k/uL (1.3-7.7); Neutrophils % (A) 82 %; Platelet Count 294 k/uL (150-450); RBC 3.97 m/uL (3.80-5.40); RDW 15.5 % (11.5-15.5); WBC 11.5 k/uL (3.8-10.6)
--- NOTE | 2018-11-23 13:37 | ED ---
General Adult HPI - General Chief complaint: Abdominal Pain Stated complaint: 17wks -cramping bleeding Time Seen by Provider: 11/23/18 12:00 Source: patient, RN notes reviewed Mode of arrival: ambulatory Limitations: no limitations - History of Present Illness Initial comments: 23-year-old female presents to the emergency department for a chief complaint of cramping and spotting. Patient states that she is currently 17 weeks . States that she had a very stressful day yesterday because her is in [facility]. States that she started to have some pelvic cramping yesterday afternoon. Patient says last night she started to have spotting. Patient states the bleeding is very light. However patient is just concerned about this. States that she saw her BREAD OVEN OPERATOR doctor Jason 4 days ago but was not having any complaints at this time. Patient does have a confirmed intrauterine . Patient requesting ultrasound.Patient has no other complaints at this time including shortness of breath, chest pain, nausea or vom iting, headache, or visual changes. - Related Data Home Medications Medication Instructions Recorded Confirmed Pnv,Calcium 72/Iron/Folic Acid 1 tab PO HS 07/04/17 07/05/18 [ Plus Tablet] Allergies Allergy/AdvReac Type Severity Reaction Status Date / Time codeine phosphate AdvReac Yeast Verified 11/23/18 11:43 [From Tylenol-Codeine #3] Infection diphenhydramine AdvReac ANXIETY Verified 11/23/18 11:43 [From Benadryl] prochlorperazine maleate AdvReac Anxiety Verified 11/23/18 11:43 [From Compazine] Review of Systems ROS Statement: Those systems with pertinent positive or pertinent negative responses have been documented in the HPI. ROS Other: All systems not noted in ROS Statement are negative. Past Medical History Past Medical History: No Reported History Additional Past Medical History / Comment(s): panic attacks History of Any Multi-Drug Resistant Organisms: None Reported Past Surgical History: Adenoidectomy, Tonsillectomy Past Psychological History: Anxiety, Panic Disorder Smoking Status: Current every day smoker Past Alcohol Use History: None Reported Past Drug Use History: None Reported General Exam Limitations: no limitations General appearance: alert, in no apparent distress Head exam: Present: atraumatic, normocephalic, normal inspection Eye exam: Present: normal appearance, PERRL, EOMI. Absent: scleral icterus, conjunctival injection, periorbital swelling ENT exam: Present: normal exam, mucous membranes moist Neck exam: Present: normal inspection, full ROM. Absent: tenderness, meningismus, lymphadenopathy Respiratory exam: Present: normal lung sounds bilaterally. Absent: respiratory distress, wheezes, rales, rhonchi, stridor Cardiovascular Exam: Present: regular rate, normal rhythm, normal heart sounds. Absent: systolic murmur, diastolic murmur, rubs, gallop, clicks GI/Abdominal exam: Present: soft, tenderness (Minimal suprapubic tenderness, no right or left lower quadrant tenderness.), normal bowel sounds. Absent: distended, guarding, rebound, rigid External exam: Present: normal external exam. Absent: erythema, swelling, lesions, lacerations, ecchymosis Speculum exam: Present: normal speculum exam. Absent: erythema, vaginal discharge, cervical discharge, vaginal bleeding, foreign body, tissue, laceration By manual exam: Present: uterine tenderness, other (Rosa JENSEN present for exam as hand scraper). Absent: cervical motion tenderness, adnexal tenderness, adnexal mass, uterine enlargement Neurological exam: Present: alert, oriented X3 Psychiatric exam: Present: normal affect, normal mood Course Vital Signs 11/23/18 11/23/18 11:41 13:43 Temperature 97.9 F 97.3 F L Pulse Rate 91 75 Respiratory 18 16 Rate Blood Pressure 126/77 99/56 O2 Sat by Pulse 98 97 Oximetry - Reevaluation(s) Reevaluation #1: 11/23/18 13:36 Patient refuses gonorrhea Chlamydia or Trichomonas cultures. States that she just had these done. Medical Decision Making - Medical Decision Making 23-year-old female currently [address] Gomez presents to the emergency department for pelvic cramping and spotting. Sates that she was very stressed yesterday because her [facility] to [facility]. States that it would make her feel better to have an ultrasound to ensure that her baby was okay. On exam no vaginal bleeding noted. Exam is unremarkable. No significant tenderness. CBC and CMP are unremarkable. Urine does not show any obvious evidence of infection, will be cultured. She is A+ blood type, does not need RhoGAM. Ultrasound shows a garrett fetus present in breech position with a gestational age of 16 weeks. This time patient agrees to follow up outpatient with her BREAD OVEN OPERATOR on Sunday. However she does agree to return here if she has any worsening symptoms. - Lab Data Result diagrams: 11/23/18 12:30 11/23/18 12:30 Lab Results 11/23/18 11/23/18 11/23/18 Range/Units 12:30 12:30 12:30 WBC 11.5 H (3.8-10.6) k/uL RBC 3.97 (3.80-5.40) m/uL Hgb 12.8 (11.4-16.0) gm/dL Hct 36.1 (34.0-46.0) % MCV 91.1 (80.0-100.0) fL MCH 32.2 (25.0-35.0) pg MCHC 35.4 (31.0-37.0) g/dL RDW 15.5 (11.5-15.5) % Plt Count 294 (150-450) k/uL Neutrophils % 82 % Lymphocytes % 14 % Monocytes % 3 % Eosinophils % 1 % Basophils % 0 % Neutrophils # 9.5 H (1.3-7.7) k/uL Lymphocytes # 1.6 (1.0-4.8) k/uL Monocytes # 0.3 (0-1.0) k/uL Eosinophils # 0.1 (0-0.7) k/uL Basophils # 0.0 (0-0.2) k/uL Sodium 140 (137-145) mmol/L Potassium 4.0 (3.5-5.1) mmol/L Chloride 108 H (98-107) mmol/L Carbon Dioxide 21 L (22-30) mmol/L Anion Gap 11 mmol/L BUN 7 (7-17) mg/dL Creatinine 0.51 L (0.52-1.04) mg/dL Est GFR (CKD-EPI)AfAm >90 (>60 ml/min/1.73 sqM) Est GFR (CKD-EPI)NonAf >90 (>60 ml/min/1.73 sqM) Glucose 100 H (74-99) mg/dL Calcium 9.3 (8.4-10.2) mg/dL Total Bilirubin 1.0 (0.2-1.3) mg/dL AST 18 (14-36) U/L ALT 29 (9-52) U/L Alkaline Phosphatase 75 (38-126) U/L Total Protein 7.0 (6.3-8.2) g/dL Albumin 3.9 (3.5-5.0) g/dL Amylase 49 (30-110) U/L Lipase 49 (23-300) U/L Urine Color Urine Appearance (Clear) Urine pH (5.0-8.0) Ur Specific [place] (1.001-1.035) Urine Protein (Negative) Urine Glucose (UA) (Negative) Urine Ketones (Negative) Urine Blood (Negative) Urine Nitrite (Negative) Urine Bilirubin (Negative) Urine Urobilinogen (<2.0) mg/dL Ur Leukocyte Esterase (Negative) Urine WBC (0-5) /hpf Ur Squamous Epith Cells (0-4) /hpf Urine Bacteria (None) /hpf Urine Mucus (None) /hpf Blood Type A Positive Blood Type Recheck No 11/23/18 Range/Units 13:55 WBC (3.8-10.6) k/uL RBC (3.80-5.40) m/uL Hgb (11.4-16.0) gm/dL Hct (34.0-46.0) % MCV (80.0-100.0) fL MCH (25.0-35.0) pg MCHC (31.0-37.0) g/dL RDW (11.5-15.5) % Plt Count (150-450) k/uL Neutrophils % % Lymphocytes % % Monocytes % % Eosinophils % % Basophils % % Neutrophils # (1.3-7.7) k/uL Lymphocytes # (1.0-4.8) k/uL Monocytes # (0-1.0) k/uL Eosinophils # (0-0.7) k/uL Basophils # (0-0.2) k/uL Sodium (137-145) mmol/L Potassium (3.5-5.1) mmol/L Chloride (98-107) mmol/L Carbon Dioxide (22-30) mmol/L Anion Gap mmol/L BUN (7-17) mg/dL Creatinine (0.52-1.04) mg/dL Est GFR (CKD-EPI)AfAm (>60 ml/min/1.73 sqM) Est GFR (CKD-EPI)NonAf (>60 ml/min/1.73 sqM) Glucose (74-99) mg/dL Calcium (8.4-10.2) mg/dL Total Bilirubin (0.2-1.3) mg/dL AST (14-36) U/L ALT (9-52) U/L Alkaline Phosphatase (38-126) U/L Total Protein (6.3-8.2) g/dL Albumin (3.5-5.0) g/dL Amylase (30-110) U/L Lipase (23-300) U/L Urine Color Dark Yellow Urine Appearance Cloudy H (Clear) Urine pH 6.0 (5.0-8.0) Ur Specific [place] 1.025 (1.001-1.035) Urine Protein Trace H (Negative) Urine Glucose (UA) Negative (Negative) Urine Ketones 1+ H (Negative) Urine Blood Negative (Negative) Urine Nitrite Negative (Negative) Urine Bilirubin Negative (Negative) Urine Urobilinogen 3.0 (<2.0) mg/dL Ur Leukocyte Esterase Trace H (Negative) Urine WBC 2 (0-5) /hpf Ur Squamous Epith Cells 8 H (0-4) /hpf Urine Bacteria Rare H (None) /hpf Urine Mucus Few H (None) /hpf Blood Type Blood Type Recheck Disposition Clinical Impression: Vaginal bleeding during Disposition: HOME SELF-CARE Condition: Good Instructions (If sedation given, give patient instructions): Abdominal Pain in (ED) Additional Instructions: Please follow up with your BREAD OVEN OPERATOR in 1-2 days. Please return to the emergency department if you have any worsening symptoms. Is patient prescribed a controlled substance at d/c from ED?: No Referrals: Johanna Cool MD [Primary Care Provider] - 1-2 days Pravin Mireles MD [STAFF PHYSICIAN] - 1-2 days Time of Disposition: 14:59
--- NOTE | 2018-11-23 13:40 | US ---
EXAMINATION TYPE: US OB >= 14 wk fetus DATE OF EXAM: 11/23/2018 COMPARISON: No previous CLINICAL HISTORY: PainPelvic cramping x couple days, spotting x 1 day, 5, para 3, miscarriage 1 TECHNIQUE: Transabdominal (TA) GESTATIONAL AGE / DATING Physician Established: (16 weeks/2 days) EDC: 05/08/2019 Dates by LMP: Unknown Dates by First Scan: No previous with this here Dates by Current Scan: (16 weeks/3 days) EDC: 05/07/2019 SURVEY IUP: Single PLACENTA: Posterior PREVIA: No Previa MATHIEU: 12.6 cm Normal CERVICAL LENGTH (transabdominal: norm > 3.0cm): 4.4 cm BIOMETRY PRESENTATION: Breech LIE: Longitudinal BPD: 3.3 cm 16 weeks / 2 days HC: 12.4 cm 16 weeks / 1 days AC: 10.7 cm 16 weeks / 4 days FL: 2.2 cm 16 weeks / 4 days ESTIMATED WEIGHT IN GRAMS: 161 grams ESTIMATED WEIGHT IN LBS/OZ: 0 lbs. 6 oz. WEIGHT PERCENTAGE BASED ON ESTABLISHED DATES: 61% HC/AC: 1.16 Normal FL/AC: 20.64 HEART RATE: 151 bpm RHYTHM: Normal MATERNAL WALL MEASUREMENT: 5.9 cm from skin to anterior uterine wall (if exam limited due to body hab itus). Viable single IUP measuring 16 weeks 3 days with a heart rate of 151bpm and an estimated delivery marcin e of 05/07/2019. IMPRESSION: FERREIRA FETUS PRESENT IN A BREECH PRESENTATION WITH A GESTATIONAL AGE OF 16 WEEKS 3 DAYS +/- 10 DAY S. ESTIMATED DATE OF CONFINEMENT BASED ON THIS EXAMINATION IS 05/07/2019.
[2018-11-23 13:45] VITALS: BP 99/56; PULSE 75; RESP 16; TEMP 97.3
[2018-11-23 14:22] LABS: Appearance,Urine Cloudy (Clear); Bacteria,Urine Rare /hpf; Bilirubin,Urine Negative (Negative); Blood,Urine Negative (Negative); Color,Urine Dark Yellow; Glucose,Urine (UA) Negative (Negative); Ketones,Urine 1+ (Negative); Leukocyte Esterase,Urine Trace (Negative); Mucus,Urine Few /hpf; Nitrite,Urine Negative (Negative); Protein,Urine Trace (Negative); Specific Gravity,Urine 1.025 (1.001-1.035); Squamous Epithelial Cell,Urine 8 /hpf (0-4); WBC,Urine 2 /hpf (0-5)
== END 2018-11-23 15:15 | disposition home or self-care (01) ==
LOC: EC 11:37
DX: O20.9 Hemorrhage in early pregnancy, unspecified (principal); O99.332 Smoking (tobacco) complicating pregnancy, second trimester; F17.200 Nicotine dependence, unspecified, uncomplicated; Z88.5 Allergy status to narcotic agent; Z88.8 Allergy status to other drugs, medicaments and biological substances; Z3A.16 16 weeks gestation of pregnancy
CPT/HCPCS: 36415; 76805; 80053; 81001; 82150; 83690; 85025; 86900; 86901; 96360; 96361; 99284

== ENCOUNTER 2019-03-16 17:42 | Outpatient (CLI) | payer OTHER ==
[2019-03-16] MEDS ORDERED: LACTATED RINGERS 1,000 ML IV ONE (18:30)
[2019-03-16 18:36] VITALS: BP 128/64; PULSE 85; RESP 14; TEMP 97.3
[2019-03-16 19:19] LABS: Appearance,Urine Cloudy (Clear); Bacteria,Urine Rare /hpf; Bilirubin,Urine Negative (Negative); Blood,Urine Negative (Negative); Color,Urine Yellow; Glucose,Urine (UA) Negative (Negative); Ketones,Urine Negative (Negative); Leukocyte Esterase,Urine Large (Negative); Mucus,Urine Few /hpf; Nitrite,Urine Negative (Negative); PH, Urine 6.5 (5.0-8.0); Protein,Urine 1+ (Negative); RBC,Urine 2 /hpf (0-5); Specific Gravity,Urine 1.023 (1.001-1.035); Squamous Epithelial Cell,Urine 8 /hpf (0-4); WBC,Urine 11 /hpf (0-5)
--- NOTE | 2019-03-31 16:37 | P.MSEPDOC ---
Presenting Problems - Arrival Data Date of Arrival on Unit: 03/16/19 Time of Arrival on Unit: 17:42 Mode of Transport: Ambulatory - Complaint OB-Reason for Admission/Chief Complaint: Other Comment: back pain and cramping since noon Medical History - Information : 5 Para: 3 Term: 2 : 1 Abortions: Spontaneous or Elective: 1 Number of Living Children: 3 - Gestational Age Gestational Age by EMEKA (wks/days): 32 Weeks and 4 Days - History Complications: Prior Review of Systems - Review of Systems Constitutional: No problems Breast: No problems ENT: No problems Cardiovascular: No problems Respiratory: No problems Gastrointestinal: No problems Genitourinary: No problems Musculoskeletal: No problems Neurological: No problems Skin: No problems Vital Signs - Temperature Temperature: 97.3 F Temperature Source: Temporal Artery Scan - Pulse Right Brachial Pulse Rate: 85 Pulse Assessment Method: Automatic Cuff - Respirations Respiratory Rate: 14 Oxygen Delivery Method: Room Air - Blood Pressure Right Arm Blood Pressure: 128/64 Blood Pressure Mean: 85 Blood Pressure Source: Automatic Cuff Medical Screen Scoring (Pre) - Cervical Exam Dilation: 0 cm = 0 Membranes: Intact - Uterine Contractions Frequency: N/A - Maternal Vital Signs Maternal Temperature: N/A Maternal Blood Pressure: N/A Signs of Preeclampsia: N/A Maternal Respirations: N/A - Maternal Trauma Maternal Trauma: N/A - Assessment - Baby A Baseline FHR: 140 - Total Score - Baby A Total Score - Baby A: 0 - Total Score - Baby B Total Score - Baby B: 0 - Total Score - Baby C Total Score - Baby C: 0 - Level of Risk - Baby A Level of Risk - Baby A: Low (0-5) - Level of Risk - Baby B Level of Risk - Baby B: Low (0-5) - Level of Risk - Baby C Level of Risk - Baby C: Low (0-5) Physician Notification (Pre) - Physician Notified Physician Notified Date: 03/16/19 Physician Notified Time: 18:17 New Order Received: Yes - Notification Comment Comment: reported pt visit with cramping and back pain since noon, reported hx of delivery at 34 weeks with prom. reported cervical exam, fht, ffn collected and urine obtained. dr would like 1000 bolus of LR, ffn and ua sent. call with results Medical Screen Scoring (Post) - Uterine Contractions Frequency: > 5 minutes apart = 1 Duration: N/A Intensity: N/A - Maternal Vital Signs Maternal Temperature: N/A Maternal Blood Pressure: N/A Signs of Preeclampsia: N/A Maternal Respirations: N/A - Pain Assessment Pain Location and Character: Abdomen Pain Scale Used: Numeric (1 - 10) Pain Intensity: 2 Pain Management Goal: 2 Pain Description: Cramping, Pressure Pain Radiation Location: none Pain Frequency: Intermittent Pain Behavior: Vocalization - Maternal Trauma Maternal Trauma: N/A - Assessment - Baby A Heart Rate: 130 Heart Rate - NICHD Category: Category I (Normal) = 0 NST: Reactive Position: N/A Station: N/A - Total Score Total Score - Baby A: 1 Total Score - Baby B: 1 Total Score - Baby C: 1 - Post Treatment Level of Risk Post Treatment Level of Risk - Baby A: Low (0-5) Post Treatment Level of Risk - Baby B: Low (0-5) Post Treatment Level of Risk - Baby C: Low (0-5) Physician Notification (Post) - Physician Notified Physician Notified Date: 03/16/19 Physician Notified Time: 19:24 Physician/Practitioner Notified:: aleyda Spoke With: Dr. Jones New Order Received: Yes - Notification Comment Comment: UA and ffn results reported, 1 bag of LR given, dishcarge pt home Disposition - Disposition OB Disposition: Triage, Discharge to home, Written follow up instructions reviewed Discharge Date: 03/16/19 Discharge Time: 19:45 I agree with the RN Medical Screening Exam: Yes Risk & Benefit of care provided described in d/c instruction: Yes Diagnosis: FALSE LABOR BEFORE 37 COMPLETED WEEKS OF GEST, THIRD TRI
== END 2019-03-16 19:45 | disposition home or self-care (01) ==
LOC: FBPOP 17:42
PROVIDERS: ATTEND Obstetrics & Gynecology Obstetrics
DX: O47.03 False labor before 37 completed weeks of gestation, third trimester (principal); Z3A.32 32 weeks gestation of pregnancy
CPT/HCPCS: 59025; 96360; 82731; 81001; 87086; G0463; 99214

== ENCOUNTER 2019-04-02 13:59 | Observation (INO) | payer OTHER ==
[2019-04-02] MEDS: LACTATED RINGERS 1,000 ML IV SCH ×3 (15:15→17:40)
[2019-04-02] MEDS ORDERED: TERBUTALINE 1 MG/ML VIAL SQ STA ×4 (16:30→18:05)
[2019-04-02] MEDS: BETAMET ACET-BETAMETH SOD PHOS 6 MG/ML VIAL IM SCH (18:30)
[2019-04-03] MEDS: BETAMET ACET-BETAMETH SOD PHOS 6 MG/ML VIAL IM SCH (06:10)
[2019-04-03 07:47] VITALS: BP 115/77; PULSE 86; RESP 16; TEMP 96.8
--- NOTE | 2019-04-03 07:47 | P.HPOB ---
History of Present Illness H&P Date: 04/03/19 Chief Complaint: Uterine contractions, strong and regular This is a 24-year-old female 5 para 3023 EDC 05/08/2018 at 34-6/7 weeks' gestation. Patient presented yesterday with strong regular uterine contractions. Her cervix on initial exam was 2 cm, it didn't progress to 3 cm dilation, -3 station, vertex presentation, 30-40% effaced. Patient was given terbutaline 0.25 mg subcutaneously 4 doses, then started on Procardia XL 60 mg orally. She was admitted for 23 hour stay, betamethasone given. Social history is significant for 1 pack per day tobacco formerly, patient is , she denies alcohol or drug use. Past obstetric history significant for 1 vaginal delivery at 34 weeks in 2018, 2 full-term vaginal deliveries. Spontaneous miscarriages. Family history significant for hypertension, muscular dystrophy, Down syndrome, diabetic neuropathy. ALLERGIES include Compazine, Benadryl, and codeine to which she reports a jittery angry reaction. Past medical history is unremarkable. Past surgical history suction D&Cs for miscarriages, tonsillectomy and adenoidectomy. Current medications vitamins daily. Obstetric history blood type is A+, rubella status immune. Urine culture, hepatitis B surface antigen, HIV testing, gonorrhea and chlamydia cultures all negative. One-hour Glucola 179, 3 hour GTT within normal limits. Group B strep cultures not yet performed. On exam patient is 5 foot 5 inches, 285 pounds, vital signs are stable and she is afebrile. The general physical exam is within normal limits. heart rate tracing is consistent with reactive NST. Cervix is 3 cm dilated, 30-40% effaced, -3 station, posterior, soft, vertex presentation. Patient is graphing uterine contractions and an irregular basis, they are milder then on admission. Impression: 34-6/7 weeks intrauterine , irregular uterine contractions, improved with terbutaline and Procardia administration. Plan again patient is admitted for continued observation, IV fluid hydration, and betamethasone administration. Review of Systems Constitutional: Reports as per HPI Past Medical History Past Medical History: No Reported History Additional Past Medical History / Comment(s): panic attacks History of Any Multi-Drug Resistant Organisms: None Reported Past Surgical History: Adenoidectomy, Tonsillectomy Smoking Status: Never smoker Medications and Allergies Home Medications Medication Instructions Recorded Confirmed Type Pnv,Calcium 72/Iron/Folic Acid 1 tab PO HS 07/04/17 04/02/19 History [ Plus Tablet] Allergies Allergy/AdvReac Type Severity Reaction Status Date / Time codeine phosphate AdvReac Yeast Verified 04/02/19 16:34 [From Tylenol-Codeine #3] Infection diphenhydramine AdvReac ANXIETY Verified 04/02/19 16:34 [From Benadryl] prochlorperazine maleate AdvReac Anxiety Verified 04/02/19 16:34 [From Compazine] Exam Intake and Output 04/02/19 04/03/19 04/03/19 22:59 06:59 14:59 Other: Weight 127.006 kg See dictation under HPI please Assessment and Plan Assessment: 34-6/7 weeks intrauterine , maternal obesity, uterine contractions with a history of . Plan: 23 are observation, IV hydration, betamethasone administration. Plan is to recheck patient's cervix in the morning for further recommendations. Time with Patient: Greater than 30
--- NOTE | 2019-04-03 07:51 | P.DS ---
Providers Date of admission: 04/02/19 20:05 Expected date of discharge: 04/03/19 Attending physician: Bibi Calvillo Primary care physician: Stated None Hospital Course: This is a 24 rolled white female para 5 para 3023 EDC 05/08/2018 at now 35 weeks gestation. Patient presented last night with uterine contractions that she felt were strong and regular. She was given terbutaline 0.25 mg subcutaneously 4 doses, then placed on Procardia XL 60 mg orally. She has received 2 doses of the Procardia at this time. She has also received betamethasone 2 doses. Please see dictated history and physical for details. This morning patient cervix remains 3 cm dilated, -3 station, vertex presentation, posterior, soft, 30-40% effaced. No cervical change has been noted since examination last night. Patient states subjectively that the cont ractions remain, but are milder and more irregular. She is judged to be in stable condition for discharge home. Have given her prescription for the Procardia XL 60 mg to continue once daily. She is reminded no intercourse, no heavy lifting, no strenuous activity. She will follow-up in the office with Dr. West within 1 week. She will return if uterine contractions become once again regular or intense, with spontaneous amniorrhexis, with any vaginal bleeding, with decreased movement, or indeed with any other concerns. Assessment: 35 week intrauterine , uterine contractions but no further cervical change, stable at this time. Patient Condition at Discharge: Good Plan - Discharge Summary Discharge Rx Participant: No New Discharge Prescriptions: No Action Pnv,Calcium 72/Iron/Folic Acid [ Plus Tablet] 1 tab PO HS Discharge Medication List Pnv,Calcium 72/Iron/Folic Acid [ Plus Tablet] 1 tab PO HS 07/04/17 [History] Follow up Appointment(s)/Referral(s): Pravin Mireles MD [STAFF PHYSICIAN] - 1 Week Discharge Disposition: HOME SELF-CARE
== END 2019-04-03 08:10 | disposition home or self-care (01) ==
LOC: FBPOP 13:59 → 4FBP 20:05
PROVIDERS: ADMIT Obstetrics & Gynecology; ATTEND Obstetrics & Gynecology
DX: O60.03 Preterm labor without delivery, third trimester (principal); Z3A.35 35 weeks gestation of pregnancy; O99.343 Other mental disorders complicating pregnancy, third trimester; Z82.79 Family history of other congenital malformations, deformations and chromosomal abnormalities; Z83.3 Family history of diabetes mellitus; Z82.69 Family history of other diseases of the musculoskeletal system and connective tissue; Z82.49 Family history of ischemic heart disease and other diseases of the circulatory system; Z88.5 Allergy status to narcotic agent; Z88.8 Allergy status to other drugs, medicaments and biological substances
CPT/HCPCS: 59025; 96360; 96372 ×2; G0463; G0378 ×2; J3105; J0702 ×2; 96361; 99214

== ENCOUNTER 2019-04-12 19:42 | Outpatient (CLI) | payer OTHER ==
[2019-04-12] MEDS ORDERED: LACTATED RINGERS 1,000 ML IV SCH (21:15)
[2019-04-12 22:51] VITALS: BP 136/81; PULSE 109; RESP 16; TEMP 96.9
--- NOTE | 2019-04-21 10:58 | P.MSEPDOC ---
Presenting Problems - Arrival Data Date of Arrival on Unit: 04/12/19 Time of Arrival on Unit: 19:42 Mode of Transport: Wheelchair - Complaint OB-Reason for Admission/Chief Complaint: Possible Onset of Labor Medical History - Information : 5 Para: 3 Term: 2 : 1 Abortions: Spontaneous or Elective: 1 Number of Living Children: 3 - Gestational Age Gestational Age by EMEKA (wks/days): 36 Weeks and 2 Days Review of Systems - Review of Systems Constitutional: No problems Breast: No problems ENT: No problems Cardiovascular: No problems Respiratory: No problems Gastrointestinal: No problems Genitourinary: No problems Musculoskeletal: No problems Neurological: No problems Skin: No problems Vital Signs - Temperature Temperature: 96.9 F Temperature Source: Temporal Artery Scan - Pulse Pulse Oximetery Pulse Rate: 109 Pulse Assessment Method: Pulse Oximetry - Respirations Respiratory Rate: 16 Oxygen Delivery Method: Room Air - Blood Pressure Sitting Blood Pressure: 136/81 Blood Pressure Mean: 99 Blood Pressure Source: Automatic Cuff Medical Screen Scoring (Pre) - Cervical Exam Dilation: 4-7 cm = 2 Effacement: More than 50% = 2 Membranes: Intact - Uterine Contractions Frequency: > or = 36 weeks =2 Duration: > 40 seconds = 2 Intensity: N/A - Maternal Vital Signs Maternal Temperature: N/A Maternal Blood Pressure: N/A Signs of Preeclampsia: N/A Maternal Respirations: N/A - Maternal Trauma Maternal Trauma: N/A - Assessment - Baby A Baseline FHR: 145 Heart Rate - NICHD Category: Category I (Normal) = 0 NST: Reactive Position: N/A Station: N/A - Total Score - Baby A Total Score - Baby A: 8 - Total Score - Baby B Total Score - Baby B: 8 - Total Score - Baby C Total Score - Baby C: 8 - Level of Risk - Baby A Level of Risk - Baby A: Medium (6-9) - Level of Risk - Baby B Level of Risk - Baby B: Medium (6-9) - Level of Risk - Baby C Level of Risk - Baby C: Medium (6-9) Physician Notification (Pre) - Physician Notified Physician Notified Date: 04/12/19 Physician Notified Time: 21:00 New Order Received: Yes - Notification Comment Comment: 2099: physician coming in to see another patient. 2112: after collecting urine physician states to order iv fluids at this time and recheck cervix again. at 2199 Patient states since she has not made change she would like to go home at this time physician states okay to discharge home with instructions. Disposition - Disposition OB Disposition: Discharge to home, Written follow up instructions reviewed Discharge Date: 04/12/19 Discharge Time: 22:15 I agree with the RN Medical Screening Exam: Yes Risk & Benefit of care provided described in d/c instruction: Yes Diagnosis: FALSE LABOR, UNSPECIFIED
== END 2019-04-12 22:15 | disposition home or self-care (01) ==
LOC: FBPOP 19:42
PROVIDERS: ATTEND Obstetrics & Gynecology
DX: O47.03 False labor before 37 completed weeks of gestation, third trimester (principal); Z3A.36 36 weeks gestation of pregnancy
CPT/HCPCS: 59025; 96365; G0463; 99214

== ENCOUNTER 2019-04-17 17:43 | Inpatient (IN) | payer OTHER ==
[2019-04-17] MEDS ORDERED: CARBOPROST TROMETHAMINE 250 MCG/ML 1 ML AMP IM PRN (20:08)
[2019-04-17] MEDS ORDERED: LIDOCAINE 0.5% (PF) 5 MG/ML (50 ML SDV) SQ PRN (20:08)
[2019-04-17] MEDS ORDERED: METHYLERGONOVINE 0.2 MG/ML 1 ML AMP IM PRN (20:08)
[2019-04-17] MEDS ORDERED: OXYTOCIN 10 UNIT/ML 1 ML VIAL IM PRN (20:08)
[2019-04-17] MEDS ORDERED: TERBUTALINE 1 MG/ML VIAL SQ PRN (20:08)
[2019-04-17] MEDS: LACTATED RINGERS 1,000 ML IV SCH (21:26)
[2019-04-17 21:34] LABS: Basophils # (A) 0.1 k/uL (0-0.2); Basophils % (A) 1 %; Eosinophils # (A) 0.1 k/uL (0-0.7); Eosinophils % (A) 1 %; HCT 34.7 % (34.0-46.0); HGB 12.5 gm/dL (11.4-16.0); Hyperchromasia Slight; Lymphocytes # (A) 2.6 k/uL (1.0-4.8); Lymphocytes % (A) 23 %; MCH 34.9 pg (25.0-35.0); MCV 96.8 fL (80.0-100.0); Mean Platelet Volume 8.3; Monocytes # (A) 0.3 k/uL (0-1.0); Monocytes % (A) 3 %; Neutrophils # (A) 7.9 k/uL (1.3-7.7); Neutrophils % (A) 72 %; Platelet Count 255 k/uL (150-450); Poikilocytosis Slight; RBC 3.59 m/uL (3.80-5.40); RDW 14.4 % (11.5-15.5); WBC 11.1 k/uL (3.8-10.6)
[2019-04-18] MEDS: BUTORPHANOL 1 MG/ML 1 ML VIAL IV PRN ×2 (00:01→02:45)
--- NOTE | 2019-04-18 09:04 | P.HPOB ---
History of Present Illness H&P Date: 04/18/19 Chief Complaint: Approximately 38 weeks, spontaneous rupture of membranes The patient is a 24-year-old 5 para 2112 admitted at approximately 38 weeks as established by 6 week ultrasound. She is admitted with documented spontaneous rupture of membranes but minimal contractions. Her has been uncomplicated and group B strep status is negative. Obstetrical history: 5 para 2113 with one delivery depression 34 weeks secondary to spontaneous rupture of membranes. She's had 2 other full- term normal deliveries with one early miscarriage. Current statistics are listed in history present illness. EDC of 05/08/2019 was established by 6 week ultrasound. Laboratory workup demonstrates a blood type of A+ with a negative antibody screen. Rubella status is immune. The remainder of the laboratory workup was within normal limits. Early Glucola was elevated but followed by a normal three-hour glucose tolerance test. Second trimester Glucola was within normal limits. Group B strep status is negative. Gynecologic history: Unremarkable with no history of any infections to include STDs. Review of Systems Review of systems is confined to history of present illness. Past Medical History Past Medical History: No Reported History Additional Past Medical History / Comment(s): panic attacks History of Any Multi-Drug Resistant Organisms: None Reported Past Surgical History: Adenoidectomy, Tonsillectomy Additional Past Surgical History / Comment(s): D&C, wisdom teeth Past Anesthesia/Blood Transfusion Reactions: Postoperative Nausea & Vomiting (PONV) Past Psychological History: Anxiety, Panic Disorder Smoking Status: Former smoker Past Alcohol Use History: None Reported Past Drug Use History: None Reported - Past Family History Father Family Medical History: Diabetes Mellitus Mother Family Medical History: Musculoskeletal Disorder Additional Family Medical History / Comment(s): Muscular distophy Medications and Allergies Home Medications Medication Instructions Recorded Confirmed Type Pnv,Calcium 72/Iron/Folic Acid 1 tab PO HS 07/04/17 04/17/19 History [ Plus Tablet] Allergies Allergy/AdvReac Type Severity Reaction Status Date / Time codeine phosphate AdvReac Yeast Verified 04/17/19 21:15 [From Tylenol-Codeine #3] Infection diphenhydramine AdvReac ANXIETY Verified 04/17/19 21:15 [From Benadryl] prochlorperazine maleate AdvReac Anxiety Verified 04/17/19 21:15 [From Compazine] Exam Vital Signs Temp Pulse Resp BP 04/17/19 21:28 98 F 72 20 121/72 04/17/19 18:50 98 F 72 20 121/72 Intake and Output 04/17/19 04/18/19 04/18/19 22:59 06:59 14:59 Other: # Voids 2 3 Weight 128.82 kg In general, this is a morbidly obese white female in no acute distress. Her heart has a regular rhythm and rate without murmur. Her lungs clear to auscultation bilaterally in all lackey. Her abdomen is gravid, nondistended, has normal active bowel sounds, soft, nontender, and without any palpable masses aside from uterine fundus. Her extremities are without any cyanosis, clubbing, or significant edema and are nontender to palpation bilaterally. Digital cervical examination on straights her cervix to be approximately 4-5 cm dilated, 60-70% effaced, the vertex in presentation at -2 station. The amniotic membranes proceeding ahead are artificially ruptured for clear fluid. Results Result Diagrams: 04/17/19 21:20 Abnormal Lab Results - Last 24 Hours (Table) 04/17/19 Range/Units 21:20 WBC 11.1 H (3.8-10.6) k/uL RBC 3.59 L (3.80-5.40) m/uL Neutrophils # 7.9 H (1.3-7.7) k/uL Assessment and Plan (1) Spontaneous rupture of amniotic membranes Current Visit: Yes Status: Acute Code(s): IOS1885 - SNOMED Code(s): 789554450 (2) Term Current Visit: Yes Status: Acute Code(s): Z34.90 - ENCNTR FOR SUPRVSN OF NORMAL , UNSP, UNSP TRIMESTER SNOMED Code(s): 87762204 Plan: Pitocin augmentation will be started and the patient will have close maternal and surveillance and expectant management practiced. She is a good candidate for either IV or epidural analgesia, whichever she may choose.
[2019-04-18] MEDS ORDERED: OXYTOCIN 30 UNITS/500 ML NS 30 UNIT in SALINE 1 500ML.BAG IV SCH (09:30)
[2019-04-18] MEDS ORDERED: LACTATED RINGERS 1,000 ML IV SCH (09:30)
[2019-04-18] MEDS: LACTATED RINGERS 1,000 ML IV SCH (09:52)
[2019-04-18] MEDS ORDERED: ROPIVACAINE 100 MG, fentaNYL (PF) 200 MCG in SODIUM CHLORIDE 0.9% 76 ML EPIDURAL ONE (10:17)
[2019-04-18] MEDS ORDERED: ZOLPIDEM 5 MG TAB PO PRN (11:44)
[2019-04-18] MEDS ORDERED: BENZOCAINE/MENTHOL SPRAY 1 GM/SPRAY AEROSOL TOPICAL PRN (11:44)
[2019-04-18] MEDS ORDERED: HYDROcodone/APAP 5-325MG 1 EACH TAB PO PRN (11:44)
[2019-04-18] MEDS ORDERED: WITCH HAZEL 1 EACH MED..PAD TOPICAL PRN (11:44)
[2019-04-18] MEDS ORDERED: HYDROCORTISONE 2.5% RECTAL CREAM 30 GM TUBE RECTAL PRN (11:44)
[2019-04-18] MEDS ORDERED: HYDROcodone/APAP 7.5-325MG 1 EACH TAB PO PRN (11:44)
[2019-04-18] MEDS ORDERED: LANOLIN CREAM 5 GM TUBE TOPICAL PRN (11:44)
[2019-04-18] MEDS ORDERED: OXYTOCIN 20 UNITS/1000 ML NS 1,000 ML IV SCH (11:45)
--- NOTE | 2019-04-18 11:49 | P.PROBDLV ---
Vaginal Delivery Note - . Vaginal Delivery Note: the patient is a 24-year-old 5 para [birth year]/31/2002 admitted at 37-one sevenths weeks by good dating parameters. She is admitted with documented spontaneous rupture of membranes but not in labor. Her has been uncomplicated and group B strep status is negative. On labor and delivery, she had Pitocin augmentation started and begin to make fairly significant progress. She had artificial rupture of the membranes from entering the vertex for clear fluid. She then in an epidural catheter placed for analgesia. She progressed fairly quickly to complete and then pushed over the course of 2 contractions to a normal spontaneous vaginal delivery of a viable 5 lbs. 12 oz. baby boy with Apgars of 9 at 1 minute and 9 at 5 minutes delivered in the right occiput anterior position. There was a loose nuchal cord 1 which was reduced following delivery of the . The placenta was delivered spontaneously, intact, and grossly normal with a grossly normal, marginally inserted three- vessel cord. A small first-degree midline perineal skin split was noted and repaired with a single [id number] stitch of 3-0 chromic catgut without difficulty. Estimated blood loss for the case was approximately 250 mL. There were no complications. All sponge, instrument, and needle counts were correct. Both mother and are resting comfortably in recovery.
[2019-04-18] MEDS: IBUPROFEN 600 MG TAB PO PRN ×2 (13:51→20:11)
[2019-04-18] MEDS: SENNOSIDES-DOCUSATE SODIUM 1 EACH TAB PO SCH (20:12)
[2019-04-18] MEDS: ACETAMINOPHEN TAB 325 MG TAB PO PRN (23:53)
[2019-04-19] MEDS: IBUPROFEN 600 MG TAB PO PRN ×3 (03:12→15:45)
[2019-04-19] MEDS: SENNOSIDES-DOCUSATE SODIUM 1 EACH TAB PO SCH ×2 (08:27→21:56)
--- NOTE | 2019-04-19 11:04 | P.PNOBGVD ---
Subjective - Subjective Patient reports: Reports appetite normal, Reports voiding normally, Reports pain well controlled, Reports ambulating normally : doing well Objective - Latest Vital Signs Latest vital signs: Vital Signs Temp Pulse Resp BP Pulse Ox 04/19/19 00:00 97.5 F L 57 L 12 110/68 97 04/18/19 20:00 97.7 F 75 12 114/60 97 04/18/19 16:00 97.9 F 73 20 109/67 04/18/19 13:53 97.7 F 86 18 117/74 04/18/19 13:27 78 18 125/85 04/18/19 12:57 71 18 122/57 04/18/19 12:42 68 18 126/60 04/18/19 12:27 98.9 F 76 18 121/60 04/18/19 12:12 69 18 128/63 04/18/19 11:57 72 18 129/60 Intake and Output 04/18/19 04/19/19 04/19/19 22:59 06:59 14:59 Other: # Voids 1 1 - Exam Extremities: Present: normal Abdomen: Present: normal appearance, soft Uterus: Present: normal, firm (the uterine fundus is tonic and nontender around the umbilicus.) Assessment and Plan (1) Spontaneous rupture of amniotic membranes Current Visit: Yes Status: Acute Code(s): WPH2879 - SNOMED Code(s): 031446882 (2) Term Current Visit: Yes Status: Acute Code(s): Z34.90 - ENCNTR FOR SUPRVSN OF NORMAL , UNSP, UNSP TRIMESTER SNOMED Code(s): 84797354 (3) Normal spontaneous vaginal delivery Current Visit: Yes Status: Acute Code(s): O80 - ENCOUNTER FOR FULL-TERM UNCOMPLICATED DELIVERY SNOMED Code(s): 79041111 Plan: Continue routine care. The is being held for 48 hours of observation secondary to uncertain a length of rupture of membranes and relatively early gestation at 37 and one sevenths weeks. I would anticipate discharge home tomorrow.
[2019-04-19] MEDS ORDERED: SERTRALINE 50 MG TAB PO SCH (16:15)
[2019-04-19 16:38] VITALS: TEMP 98.3
[2019-04-19] MEDS: ACETAMINOPHEN TAB 325 MG TAB PO PRN (20:42)
[2019-04-20] MEDS: IBUPROFEN 600 MG TAB PO PRN ×2 (05:14→12:01)
[2019-04-20 08:33] VITALS: BP 109/73; PULSE 70; RESP 18
[2019-04-20] MEDS: SENNOSIDES-DOCUSATE SODIUM 1 EACH TAB PO SCH (09:37)
--- NOTE | 2019-04-20 10:41 | P.DS ---
Providers Date of admission: 04/17/19 19:30 Expected date of discharge: 04/20/19 Attending physician: Humaira Jones Primary care physician: Stated None - Discharge Diagnosis(es) (1) Spontaneous rupture of amniotic membranes Current Visit: Yes Status: Acute (2) Term Current Visit: Yes Status: Acute (3) Normal spontaneous vaginal delivery Current Visit: Yes Status: Acute Hospital Course: the patient is a 24-year-old 5 para 2113 admitted at 37 and one sevenths weeks by good dating parameters perches admitted secondary to documented spontaneous rupture of membranes by testing only and not in labor. Her was uncomplicated and group B strep status is negative. On labor and delivery, labor did not ensue on its own. The patient underwent artificial rupture of membranes and began Pitocin augmentation. She had an epidural catheter placed for analgesia and progressed fairly quickly to complete where after she pushed to a normal spontaneous vaginal delivery of a viable 5 lbs. 12 oz. baby boy with Apgars of 9 at 1 minute and 9 at 5 minutes. Her course was unremarkable with vital signs remaining stable and her temperature was afebrile throughout. She was deemed stable for discharge on day #2 was discharged home to follow-up in the office in 6 weeks' time routinely. Discharge instructions included calling for any significantly increased bleeding or foul-smelling lochia, significantly increased fever or abdominal pain, perineal complaints, breast complaints, or anything else that concerned her. She was additionally instructed to have nothing in the vagina for at least 6 weeks time to include intercourse. She understood her instructions and agrees to follow up as noted above. Discharge medications included only a prescription for Zoloft 50 mg, 1 by mouth daily, #90 dispensed with 3 refills. She has opted to not to breast-feed though still encouraged to take vitamins for overall health. Maternal blood type is A+ and rubella status is immune. Procedures: #1. Pitocin augmentation #2. Artificial rupture of membranes #3. Epidural analgesia #4. Normal spontaneous vaginal delivery #5. Repair of first-degree perineal laceration Patient Condition at Discharge: Stable Plan - Discharge Summary New Discharge Prescriptions: No Action Pnv,Calcium 72/Iron/Folic Acid [ Plus Tablet] 1 tab PO HS Discharge Medication List Pnv,Calcium 72/Iron/Folic Acid [ Plus Tablet] 1 tab PO HS 07/04/17 [History] Follow up Appointment(s)/Referral(s): Pravin Mireles MD [STAFF PHYSICIAN] - 6 Weeks Discharge Disposition: HOME SELF-CARE
== END 2019-04-20 15:30 | disposition home or self-care (01) | DRG 807 ==
LOC: FBPOP 17:43 → 4FBP 19:30
PROVIDERS: ADMIT Obstetrics & Gynecology Obstetrics; ATTEND Obstetrics & Gynecology Obstetrics
PROC: 3E0R3NZ Introduction of Analgesics, Hypnotics, Sedatives into Spinal Canal, Percutaneous Approach (ICD-10-PCS; principal; 2019-04-18)
PROC: 10907ZC Drainage of Amniotic Fluid, Therapeutic from Products of Conception, Via Natural or Artificial Opening (ICD-10-PCS; principal; 2019-04-18)
PROC: 0HQ9XZZ Repair Perineum Skin, External Approach (ICD-10-PCS; principal; 2019-04-18)
PROC: 10E0XZZ Delivery of Products of Conception, External Approach (ICD-10-PCS; principal; 2019-04-18)
PROC: 00HU33Z Insertion of Infusion Device into Spinal Canal, Percutaneous Approach (ICD-10-PCS; principal; 2019-04-18)
DX: O99.344 Other mental disorders complicating childbirth (principal); Z37.0 Single live birth; O69.81X0 Labor and delivery complicated by cord around neck, without compression, not applicable or unspecified; F41.0 Panic disorder [episodic paroxysmal anxiety]; Z3A.38 38 weeks gestation of pregnancy; O70.0 First degree perineal laceration during delivery; Z79.899 Other long term (current) drug therapy; Z87.891 Personal history of nicotine dependence; Z90.89 Acquired absence of other organs; Z82.69 Family history of other diseases of the musculoskeletal system and connective tissue; Z83.3 Family history of diabetes mellitus
CPT/HCPCS: 59025; 84112; 85025; 86850; 86900; 86901; 99213

== ENCOUNTER 2023-06-02 19:06 | Emergency (ER) | payer OTHER ==
[2023-06-02 19:29] VITALS: TEMP 97.7
--- NOTE | 2023-06-02 20:15 | ED ---
ENT HPI - General Chief complaint: ENT Stated complaint: nose drainage Time Seen by Provider: 06/02/23 19:22 Source: family Mode of arrival: ambulatory Limitations: no limitations - History of Present Illness Initial comments: 28-year-old female presenting to the ED with a chief complaint of CSF leak. Patient reports for the past year, has had clear fluid leaking out of her left nostril. States that this often worsens with her bending forward. Addit ionally, notes history of headache however states that this has been ongoing for longer than a year. Headache has not worsened in severity recently. Drainage from the nose has not worsened recently. Patient states that she convinced herself that she has had a CSF leak for the past year. States that due to having multiple kids she is very busy and has been unable to follow-up however today notes that she has some free time which prompted presentation to the ED for further evaluation. No dizziness. No nausea or vomiting. No other complaints at this time. - Related Data Home Medications Medication Instructions Recorded Confirmed Pnv,Calcium 72/Iron/Folic Acid 1 tab PO HS 07/04/17 04/17/19 [ Plus Tablet] Allergies Allergy/AdvReac Type Severity Reaction Status Date / Time codeine phosphate AdvReac Yeast Verified 06/02/23 19:15 [From Tylenol-Codeine #3] Infection diphenhydramine AdvReac ANXIETY Verified 06/02/23 19:15 [From Benadryl] prochlorperazine maleate AdvReac Anxiety Verified 06/02/23 19:15 [From Compazine] Review of Systems ROS Statement: Those systems with pertinent positive or pertinent negative responses have been documented in the HPI. ROS Other: All systems not noted in ROS Statement are negative. Past Medical History Past Medical History: No Reported History Additional Past Medical History / Comment(s): panic attacks History of Any Multi-Drug Resistant Organisms: None Reported Past Surgical History: Adenoidectomy, Tonsillectomy Additional Past Surgical History / Comment(s): D&C, wisdom teeth Past Anesthesia/Blood Transfusion Reactions: Postoperative Nausea & Vomiting (PONV) Past Psychological History: Anxiety, Panic Disorder Smoking Status: Current every day smoker Past Alcohol Use History: None Reported Past Drug Use History: None Reported - Past Family History Father Family Medical History: Diabetes Mellitus Mother Family Medical History: Musculoskeletal Disorder Additional Family Medical History / Comment(s): Muscular distophy General Exam Limitations: no limitations General appearance: alert, in no apparent distress Eye exam: Present: PERRL, EOMI ENT exam: Present: other (Patient is constantly dabbing her left nostril secondary to nasal drainage.) Neck exam: Present: normal inspection Respiratory exam: Present: normal lung sounds bilaterally Cardiovascular Exam: Present: regular rate, normal rhythm GI/Abdominal exam: Present: soft Extremities exam: Present: other Neurological exam: Present: alert, oriented X3, CN II-XII intact Course Vital Signs 06/02/23 19:14 Temperature 97.7 F Pulse Rate 82 Respiratory 18 Rate Blood Pressure 156/92 O2 Sat by Pulse 96 Oximetry Medical Decision Making - Medical Decision Making Was pt. sent in by a medical professional or institution (TRAVIS García, COMBAT CONTROL MANAGER, urgent care, hospital, or half-way...) When possible be specific @ -No Did you speak to anyone other than the patient for history (EMS, parent, family, police, friend...)? What history was obtained from this source @ -No Did you review nursing and triage notes (agree or disagree)? Why? @ -I reviewed and agree with nursing and triage notes Were old charts reviewed (outside hosp., previous admission, EMS record, old EKG, old radiological studies, urgent care reports/EKG's, half-way records)? Report findings @ -No old charts were reviewed Differential Diagnosis (chest pain, altered mental status, abdominal pain women, abdominal pain men, vaginal bleeding, weakness, fever, dyspnea, syncope, hea dache, dizziness, GI bleed, back pain, seizure, CVA, palpatations, mental health, musculoskeletal)? @ -Differential Headache: Migraine, tension, cluster, carbon monoxide, central venous thrombosis, pension karma temporal arteritis, acute closure glaucoma, intercranial hemorrhage, mast oiditis, sinusitis, head injury, this is not meant to be an all-inclusive list. EKG interpreted by me (3pts min.). @ -As above X-rays interpreted by me (1pt min.). @ -None done CT interpreted by me (1pt min.). @ -CT angio of the head and neck unremarkable CT of the brain shows a fluid collection in the left sphenoid sinus possibly representing CSF leak. Interpreted by me U/S interpreted by me (1pt. min.). @ -None done What testing was considered but not performed or refused? (CT, X-rays, U/S, labs)? Why? @ -None What meds were considered but not given or refused? Why? @ -None Did you discuss the management of the patient with other professionals ( professionals i.e. Dr., PA, COMBAT CONTROL MANAGER, lab, RT, psych nurse, psychosocial rehabilitation counselor, pop singer, teacher, traffic maintenance officer, human services case manager)? Give summary @ -Case discussed with Dr. Cochran. At this time recommends CT of the brain and CT angio head and neck. If unremarkable, recommends observation for CT myelog marisa. Notes if patient would not like observation strongly urges close follow-up with Dr. Leon of [facility] or Dr. Whalen of [facility]. Spoke to laboratory at this time reports they are unavailable to test fluid for CSF. Was smoking cessation discussed for >3mins.? @ -No Was critical care preformed (if so, how long)? @ -No Were there social determinants of health that impacted care today? How? (Homelessness, low income, unemployed, alcoholism, drug addiction, transportation, low edu. Level, literacy, decrease access to med. care, fdc, rehab)? @ -No Was there de-escalation of care discussed even if they declined (Discuss DNR or withdrawal of care, Hospice)? DNR status @ -No What co-morbidities impacted this encounter? (DM, HTN, Smoking, COPD, CAD, Cancer, CVA, ARF, Chemo, Hep., AIDS, mental health diagnosis, sleep apnea, morbid obesity)? @ -None Was patient admitted / discharged? Hospital course, mention meds given and route, prescriptions, significant lab abnormalities, going to OR and other pertinent info. @ -Discharge 28-year-old female presenting to the ED with concerns of CSF leak secondary to ongoing rhinorrhea from the left nostril for the past year which worsens with bending forward. Also notes headache with this. No recent worsening however patient reports that she has time for evaluation which prompted presentation here for further evaluation. Laboratory studies reviewed. CBC shows an elevated white blood cell count of 14 elevated neutrophils at 8.4. Chemistry studies show an elevated CRP at 3.1 remainder largely unremarkable. UA unremarkable. Urine hCG negative. CT angio head and neck unremarkable however CT brain did show fluid collection in the left sphenoid sinus possibly consistent with CSF leak. Patient was offered observation for CT myelogram and consult to neurology however patient at this time would not like observation. Patient provided referrals to see Dr. Leon and Dr. Whalen. At this time, vital signs stable and afebrile. Patient discharged home in stable condition. Discussed strict return precautions with patient who verbalized agreement. Undiagnosed new problem with uncertain prognosis? @ -No Drug Therapy requiring intensive monitoring for toxicity (Heparin, Nitro, Insulin, Cardizem)? @ -No Were any procedures done? @ -No Diagnosis/symptom? @ -Rhinorrhea, MARIN, possible CSF leak Acute, or Chronic, or Acute on Chronic? @ -Acute Uncomplicated (without systemic symptoms) or Complicated (systemic symptoms)? @ -Complicated Side effects of treatment? @ -No Exacerbation, Progression, or Severe Exacerbation? @ -No Poses a threat to life or bodily function? How? (Chest pain, USA, PA, pneumonia, PE, COPD, DKA, ARF, appy, cholecystitis, CVA, Diverticulitis, Homicidal, Suicidal, threat to staff... and all critical care pts) @ -No - Lab Data Result diagrams: 06/02/23 20:20 06/02/23 20:20 Lab Results 06/02/23 06/02/23 06/02/23 Range/Units 20:20 20:20 20:34 WBC 14.0 H (3.8-10.6) k/uL RBC 4.50 (3.80-5.40) m/uL Hgb 14.2 (11.4-16.0) gm/dL Hct 42.6 (34.0-46.0) % MCV 94.7 (80.0-100.0) fL MCH 31.6 (25.0-35.0) pg MCHC 33.4 (31.0-37.0) g/dL RDW 12.9 (11.5-15.5) % Plt Count 290 (150-450) k/uL MPV 7.9 Neutrophils % 61 % Lymphocytes % 31 % Monocytes % 4 % Eosinophils % 4 % Basophils % 0 % Neutrophils # 8.4 H (1.3-7.7) k/uL Lymphocytes # 4.3 (1.0-4.8) k/uL Monocytes # 0.5 (0-1.0) k/uL Eosinophils # 0.5 (0-0.7) k/uL Basophils # 0.1 (0-0.2) k/uL Sodium 139 (137-145) mmol/L Potassium 4.4 (3.5-5.1) mmol/L Chloride 108 H (98-107) mmol/L Carbon Dioxide 23 (22-30) mmol/L Anion Gap 8 mmol/L BUN 10 (7-17) mg/dL Creatinine 0.62 (0.52-1.04) mg/dL Est GFR (CKD-EPI)AfAm >90 (>60 ml/min/1.73 sqM) Est GFR (CKD-EPI)NonAf >90 (>60 ml/min/1.73 sqM) Glucose 96 (74-99) mg/dL Calcium 9.3 (8.4-10.2) mg/dL Total Bilirubin 0.8 (0.2-1.3) mg/dL AST 22 (14-36) U/L ALT 28 (4-34) U/L Alkaline Phosphatase 74 (38-126) U/L C-Reactive Protein 3.1 H (<1.0) mg/dL Total Protein 6.8 (6.3-8.2) g/dL Albumin 3.9 (3.5-5.0) g/dL Urine Color Light Yellow Urine Appearance Clear (Clear) Urine pH 6.5 (5.0-8.0) Ur Specific [place] 1.014 (1.001-1.035) Urine Protein Negative (Negative) Urine Glucose (UA) Negative (Negative) Urine Ketones Negative (Negative) Urine Blood Negative (Negative) Urine Nitrite Negative (Negative) Urine Bilirubin Negative (Negative) Urine Urobilinogen <2.0 (<2.0) mg/dL Ur Leukocyte Esterase Negative (Negative) Urine HCG, Qual (Not Detectd) 06/02/23 Range/Units 20:34 WBC (3.8-10.6) k/uL RBC (3.80-5.40) m/uL Hgb (11.4-16.0) gm/dL Hct (34.0-46.0) % MCV (80.0-100.0) fL MCH (25.0-35.0) pg MCHC (31.0-37.0) g/dL RDW (11.5-15.5) % Plt Count (150-450) k/uL MPV Neutrophils % % Lymphocytes % % Monocytes % % Eosinophils % % Basophils % % Neutrophils # (1.3-7.7) k/uL Lymphocytes # (1.0-4.8) k/uL Monocytes # (0-1.0) k/uL Eosinophils # (0-0.7) k/uL Basophils # (0-0.2) k/uL Sodium (137-145) mmol/L Potassium (3.5-5.1) mmol/L Chloride (98-107) mmol/L Carbon Dioxide (22-30) mmol/L Anion Gap mmol/L BUN (7-17) mg/dL Creatinine (0.52-1.04) mg/dL Est GFR (CKD-EPI)AfAm (>60 ml/min/1.73 sqM) Est GFR (CKD-EPI)NonAf (>60 ml/min/1.73 sqM) Glucose (74-99) mg/dL Calcium (8.4-10.2) mg/dL Total Bilirubin (0.2-1.3) mg/dL AST (14-36) U/L ALT (4-34) U/L Alkaline Phosphatase (38-126) U/L C-Reactive Protein (<1.0) mg/dL Total Protein (6.3-8.2) g/dL Albumin (3.5-5.0) g/dL Urine Color Urine Appearance (Clear) Urine pH (5.0-8.0) Ur Specific [place] (1.001-1.035) Urine Protein (Negative) Urine Glucose (UA) (Negative) Urine Ketones (Negative) Urine Blood (Negative) Urine Nitrite (Negative) Urine Bilirubin (Negative) Urine Urobilinogen (<2.0) mg/dL Ur Leukocyte Esterase (Negative) Urine HCG, Qual Not Detected (Not Detectd) Disposition Clinical Impression: Headache, Rhinorrhea, CSF leak Disposition: HOME SELF-CARE Condition: Good Additional Instructions: Please return to the Emergency Department if symptoms worsen or any other conc erns. Please follow up with Dr. Leon of [facility] or Dr. Whalen of [facility]. Is patient prescribed a controlled substance at d/c from ED?: No Referrals: None,Stated [Primary Care Provider] - 1-2 days Tyree Leon MD [Medical Doctor] - 1-2 days Vicki Whalen MD [REFERRING] - 1-2 days Time of Disposition: 23:04
[2023-06-02 20:50] LABS: Appearance,Urine Clear (Clear); Bilirubin,Urine Negative (Negative); Blood,Urine Negative (Negative); Color,Urine Light Yellow; Glucose,Urine (UA) Negative (Negative); Ketones,Urine Negative (Negative); Leukocyte Esterase,Urine Negative (Negative); Nitrite,Urine Negative (Negative); PH, Urine 6.5 (5.0-8.0); Protein,Urine Negative (Negative); Specific Gravity,Urine 1.014 (1.001-1.035); Urobilinogen,Urine <2.0 mg/dL (<2.0)
[2023-06-02 20:51] LABS: Basophils # (A) 0.1 k/uL (0-0.2); Basophils % (A) 0 %; Eosinophils # (A) 0.5 k/uL (0-0.7); Eosinophils % (A) 4 %; HCT 42.6 % (34.0-46.0); HGB 14.2 gm/dL (11.4-16.0); Lymphocytes # (A) 4.3 k/uL (1.0-4.8); Lymphocytes % (A) 31 %; MCH 31.6 pg (25.0-35.0); MCHC 33.4 g/dL (31.0-37.0); MCV 94.7 fL (80.0-100.0); Mean Platelet Volume 7.9; Monocytes # (A) 0.5 k/uL (0-1.0); Monocytes % (A) 4 %; Neutrophils # (A) 8.4 k/uL (1.3-7.7); Neutrophils % (A) 61 %; Platelet Count 290 k/uL (150-450); RDW 12.9 % (11.5-15.5)
[2023-06-02 21:07] LABS: ALT 28 U/L (4-34); AST 22 U/L (14-36); African American GFR (CKD) >90 (>60 ml/min/1.73 sqM); Albumin 3.9 g/dL (3.5-5.0); Alkaline Phosphatase 74 U/L (38-126); Anion Gap 8 mmol/L; Blood Urea Nitrogen 10 mg/dL (7-17); C Reactive Protein 3.1 mg/dL (<1.0); Calcium 9.3 mg/dL (8.4-10.2); Carbon Dioxide 23 mmol/L (22-30); Chloride 108 mmol/L (98-107); Glucose 96 mg/dL (74-99); Non-African American GFR(CKD) >90 (>60 ml/min/1.73 sqM); Potassium 4.4 mmol/L (3.5-5.1); Sodium 139 mmol/L (137-145); Total Bilirubin 0.8 mg/dL (0.2-1.3); Total Protein 6.8 g/dL (6.3-8.2)
--- NOTE | 2023-06-02 22:07 | CT ---
EXAMINATION TYPE: CT brain wo con CT DLP: Combined DLP of 9.2 mGycm, Automated exposure control for dose reduction was used. DATE OF EXAM: 06/02/2023 9:37 PM COMPARISON: None. CLINICAL INDICATION:Female, 28 years old with history of rhinorrhea/MARIN possible CSF leak, Rhinorrhea/ MARIN possible CSF leak x1yr. No injury. TECHNIQUE: Brain: Axial CT images of the brain were obtained with coronal and sagittal reformats created and rev iewed. Contrast used: None. Oral contrast used: None. FINDINGS: Extra-axial spaces: No abnormal extra-axial fluid collections. Ventricular system: Within normal limits. Cerebral parenchyma: No increased attenuation to suggest acute intraparenchymal hemorrhage. The gra y-white matter interface appears maintained. No significant atrophy. White matter unremarkable by C T. Cerebellum: No acute abnormality. Mass effect: No evidence of mass effect or midline shift. Intracranial vasculature: Unremarkable Soft tissues: No acute or concerning abnormality. Visualized orbits: Orbital contents appear grossly intact. Calvarium/osseous structures: No evidence of calvarial fracture or destructive bone lesion. No gross evidence of bony defects at the skull base however spatial resolution is limited on a standard protoc ol CT head. Paranasal sinuses and mastoid air cells: Mild mucosal thickening and fluid levels seen in the left sp henoid sinus. Tiny polyp or mucous retention cyst along the roof of the right maxillary sinus. Masto id air cells are clear. Middle ears show no gross abnormalities. IMPRESSION: 1. No acute intracranial CT abnormality. 2. Fluid levels in the left sphenoid sinus, could be related to sinusitis. However, a CSF leak could potentially have this appearance. No definite bony abnormality is suggested by this exam. If further evaluation is clinically warranted, an outpatient CT cisternogram, nuclear medicine radionuclide cis ternogram, and/or a combined study with nasal pledgets in place, would provide greater sensitivity fo r detection of CSF leak.
--- NOTE | 2023-06-02 22:31 | CT ---
EXAMINATION TYPE: CT angio head neck DATE OF EXAM: 06/02/2023 9:37 PM COMPARISON: Same day noncontrast CT head. CLINICAL INDICATION:Female, 28 years old with history of rhinorrhea/MARIN possible CSF leak; PHH, Rhinor heri/MARIN possible CSF leak x1yr. No injury. TECHNIQUE: Axially acquired helical CT angiogram of the head and neck was obtained with contrast. Axi al images are supplemented with 3D reconstructions which [facility] NASCET criteria used. Contrast used: 65 cc mL of Isovue 370 with IV Contrast, Oral contrast used: None. CT DLP: Combined DLP of 2069.2 mGycm, Automated exposure control for dose reduction was used. FINDINGS: Limitations related to the patient's large body habitus, and resultant artifacts. CTA Neck: A 3 vessel aortic arch is shown. No evidence of dissection flap or significant atherosclerotic disea se. Right carotid system: The common carotid is patent. There is no hemodynamically significant diameter stenosis, dissection, nor pseudoaneurysm present. Left carotid system: The common carotid is patent. There is no hemodynamically significant diameter s tenosis, dissection, nor pseudoaneurysm present. Vertebral arteries: There is no significant atherosclerotic plaque or narrowing at the origins of the vertebral arteries. The vertebrals are then otherwise patent to the skull base. The left vertebral artery is dominant. Other: Visualized neck soft tissues show no concerning abnormality. Multiple mildly prominent lymph n odes throughout the bilateral neck, likely normal reactive. No grossly enlarged or necrotic nodes. No evidence of mass. Cervical spine shows straightening and mild reversal of the normal cervical lordos is which can be due to pain, positioning, or muscular spasm. Imaged portions of the lung apices show no consolidation or pneumothorax. Question mildly prominent interstitial markings versus artifactual appearance. CTA Head: Intracranial ICAs, bifurcations, ACAs, MCAs appear normally patent. Anterior communicating artery is definitely seen. The intracranial vertebral arteries enhance normally. Basilar artery is patent and unremarkable. Norm al basilar bifurcation without evidence of aneurysm. Visualized proximal artificial breeding distributor are patent. A right posterior communicating artery is not definitely seen. A left posterior communicating artery is not definitely seen. No intracranial large vessel occlusion, hemodynamically significant stenosis, aneurysm, dissection, o r arteriovenous malformation is shown. No abnormal contrast extravasation. The dural venous sinuses appear grossly patent without evidence of thrombosis. Left sigmoid and trans verse sinuses appear severely hypoplastic in relation to the right side. Other: Please refer to same-day CT head report. Fluid levels in the left sphenoid sinus. No clear evidence of an osseous defect at the skull base to suggest possible site of CSF leak, however detail is limited on this CT angiogram protocol study. Ref er to CT head report for further description and follow-up suggestions. IMPRESSION: CTA neck: 1. No dissection, hemodynamically significant stenosis, or pseudoaneurysm detected in the carotid or vertebral arteries in the neck. CTA head: 1. No intracranial large vessel occlusion, significant stenosis, sizable aneurysm or vascular malfor mation detected in the limits of CTA. 2. Fluid levels in the left sphenoid sinus. Refer to CT head report for further description and foll ow-up suggestions.
[2023-06-02 23:11] VITALS: BP 112/79; PULSE 103; RESP 20
[2023-06-02] MEDS ORDERED: ACETAMINOPHEN TAB 500 MG TAB PO STA (23:15)
[2023-06-03 16:58] LABS: Erythrocyte Sedimentation Rate 27 mm/Hr (0-20)
== END 2023-06-02 23:09 | disposition home or self-care (01) ==
LOC: EC 19:06
DX: G96.08 Other cranial cerebrospinal fluid leak (principal); J34.89 Other specified disorders of nose and nasal sinuses; R51.9 Headache, unspecified; F17.200 Nicotine dependence, unspecified, uncomplicated; Z86.59 Personal history of other mental and behavioral disorders
CPT/HCPCS: 36415; 80053; 85652; 85025; 86140; 81003; 81025; 70496; 70450; 70498; 99284; Q9967

== ENCOUNTER 2024-03-23 20:47 | Emergency (ER) | payer OTHER ==
[2024-03-23 20:52] VITALS: TEMP 98.2
--- NOTE | 2024-03-23 21:07 | ED ---
Headache HPI - General Chief Complaint: Headache Stated Complaint: Headache, NVD Time Seen by Provider: 03/23/24 21:04 Source: patient, RN notes reviewed Mode of arrival: ambulatory Limitations: no limitations - History of Present Illness Initial Comments: 29-year-old female presenting to the ER with a chief complaint of feeling unwell. Patient states on 03-19-2024 patient started to feel unwell with a headache. Patient describes it as a throbbing persistent headache. Patient was seen at [facility] at that time and diagnosed with allergies. Patient CT brain scan performed at that time which was negative for acute intracranial process. Patient states she received medication and once medication wore off her symptoms returned. She reports on and Sunday she did not have anything to eat and continued to feel unwell. Patient states turning her head and moving made her feel dizzy which has caused her to stay in bed. She does state symptoms improve when she is laying down. She states Sunday she believes she had a couple bouts of diarrhea as well. She denies any abdominal pain but does admit to mild nausea and vomiting. She states she does feel mildly dizzy as well which has also caused her to stay in bed. Symptoms have persisted along with headache since then. She has tried [id number] Excedrin and ibuprofen with only mild relief. She has no significant past medical history. Patient denies any fevers, chest pain, shortness of breath, urinary complaints or peripheral edema. - Related Data Home Medications Medication Instructions Recorded Confirmed Pnv,Calcium 72/Iron/Folic Acid 1 tab PO HS 07/04/17 04/17/19 [ Plus Tablet] Allergies Allergy/AdvReac Type Severity Reaction Status Date / Time codeine phosphate AdvReac Yeast Verified 03/23/24 20:49 [From Tylenol-Codeine #3] Infection diphenhydramine AdvReac ANXIETY Verified 03/23/24 20:49 [From Benadryl] prochlorperazine maleate AdvReac Anxiety Verified 03/23/24 20:49 [From Compazine] Review of Systems ROS Statement: Those systems with pertinent positive or pertinent negative responses have been documented in the HPI. ROS Other: All systems not noted in ROS Statement are negative. Past Medical History Past Medical History: No Reported History Additional Past Medical History / Comment(s): panic attacks History of Any Multi-Drug Resistant Organisms: None Reported Past Surgical History: Adenoidectomy, Tonsillectomy Additional Past Surgical History / Comment(s): D&C, wisdom teeth Past Anesthesia/Blood Transfusion Reactions: Postoperative Nausea & Vomiting (PONV) Past Psychological History: Anxiety, Panic Disorder Smoking Status: Current every day smoker Past Alcohol Use History: None Reported Past Drug Use History: None Reported - Past Family History Father Family Medical History: Diabetes Mellitus Mother Family Medical History: Musculoskeletal Disorder Additional Family Medical History / Comment(s): Muscular distophy General Exam Limitations: no limitations General appearance: alert, in no apparent distress Head exam: Present: atraumatic, normocephalic, normal inspection ENT exam: Present: normal exam, normal oropharynx, mucous membranes moist, TM's normal bilaterally (No mastoid tenderness bilaterally) Respiratory exam: Present: normal lung sounds bilaterally. Absent: respiratory distress, wheezes, rales, rhonchi, stridor Cardiovascular Exam: Present: regular rate, normal rhythm, normal heart sounds. Absent: systolic murmur, diastolic murmur, rubs, gallop, clicks GI/Abdominal exam: Present: soft, normal bowel sounds. Absent: distended, tenderness, guarding, rebound, rigid Neurological exam: Present: alert, oriented X3, CN II-XII intact Skin exam: Present: warm, dry, intact, normal color. Absent: rash Course Vital Signs 03/23/24 20:48 Temperature 98.2 F Pulse Rate 89 Respiratory 20 Rate Blood Pressure 122/92 O2 Sat by Pulse 98 Oximetry Medical Decision Making - Medical Decision Making Was pt. sent in by a medical professional or institution (, PA, ASSISTANT MANAGER QUALITY MANAGEMENT, urgent care, hospital, or alf...) When possible be specific @ -No Did you speak to anyone other than the patient for history (EMS, parent, family, police, friend...)? What history was obtained from this source @ -No Did you review nursing and triage notes (agree or disagree)? Why? @ -I reviewed and agree with nursing and triage notes Were old charts reviewed (outside hosp., previous admission, EMS record, old EKG, old radiological studies, urgent care reports/EKG's, alf records)? Report findings @ -No old charts were reviewed Differential Diagnosis (chest pain, altered mental status, abdominal pain women, abdominal pain men, vaginal bleeding, weakness, fever, dyspnea, syncope, headache, dizziness, GI bleed, back pain, seizure, CVA, palpatations, mental health, musculoskeletal)? @ -Differential Headache: Migraine, tension, cluster, carbon monoxide, central venous thrombosis, pension karma temporal arteritis, acute closure glaucoma, intercranial hemorrhage, mastoiditis, sinusitis, head injury, this is not meant to be an all-inclusive list. EKG interpreted by me (3pts min.). @ -As above X-rays interpreted by me (1pt min.). @ -CXR interpreted me negative for focal consolidations, pneumothorax or pleural effusions. CT interpreted by me (1pt min.). @ -None done U/S interpreted by me (1pt. min.). @ -None done What testing was considered but not performed or refused? (CT, X-rays, U/S, labs)? Why? @ -CT brain considered due to headache this was not performed as patient repor ts having CT brain performed at [facility] on Sunday. What meds were considered but not given or refused? Why? @ -None Did you discuss the management of the patient with other professionals (professionals i.e. , PA, ASSISTANT MANAGER QUALITY MANAGEMENT, lab, RT, psych nurse, psychiatric social worker, electrolysis investigator, teacher, space operations officer, lead generation marketing manager)? Give summary @ -No Was smoking cessation discussed for >3mins.? @ -No Was critical care preformed (if so, how long)? @ -No Were there social determinants of health that impacted care today? How? (Homelessness, low income, unemployed, alcoholism, drug addiction, transpor tation, low edu. Level, literacy, decrease access to med. care, fpc, rehab)? @ -No Was there de-escalation of care discussed even if they declined (Discuss DNR or withdrawal of care, Hospice)? DNR status @ -No What co-morbidities impacted this encounter? (DM, HTN, Smoking, COPD, CAD, Cancer, CVA, ARF, Chemo, Hep., AIDS, mental health diagnosis, sleep apnea, morbid obesity)? @ -None Was patient admitted / discharged? Hospital course, mention meds given and route, prescriptions, significant lab abnormalities, going to OR and other pertinent info. @ -Discharge. 29-year-old female presented to the ER with a chief complaint of feeling unwell and headache. History and physical exam completed. Vital stable. Patient in no signs of distress. Laboratory studies obtained unremarka ble. Viral swabs negative. Chest x-ray negative. EKG showing NSR no acute evidence of infarct or ischemia. Patient received symptomatic treatment in the ER, with improvement. Patient stable for discharge. Strict return parameters discussed. Patient discharged in stable condition with follow-up to PCP. Patient verbally expressed understanding and agreement with care plan. Case discussed with ED attending, . Undiagnosed new problem with uncertain prognosis? @ -No Drug Therapy requiring intensive monitoring for toxicity (Heparin, Nitro, Insulin, Cardizem)? @ -No Were any procedures done? @ -No Diagnosis/symptom? @ -Headache Acute, or Chronic, or Acute on Chronic? @ -Acute Uncomplicated (without systemic symptoms) or Complicated (systemic symptoms)? @ -Uncomplicated Side effects of treatment? @ -No Exacerbation, Progression, or Severe Exacerbation? @ -No Poses a threat to life or bodily function? How? (Chest pain, [place], [place], pneumonia, PE, COPD, DKA, ARF, appy, cholecystitis, CVA, Diverticulitis, Homicidal, Suicidal, threat to staff... and all critical care pts) @ -No - Lab Data Result diagrams: 03/23/24 21:36 03/23/24 21:36 Lab Results 03/23/24 03/23/24 03/23/24 Range/Units 21:36 21:36 21:36 WBC 9.4 (3.8-10.6) k/uL RBC 4.29 (3.80-5.40) m/uL Hgb 13.9 (11.4-16.0) gm/dL Hct 40.8 (34.0-46.0) % MCV 95.3 (80.0-100.0) fL MCH 32.4 (25.0-35.0) pg MCHC 33.9 (31.0-37.0) g/dL RDW 13.6 (11.5-15.5) % Plt Count 263 (150-450) k/uL MPV 8.2 Neutrophils % 62 % Lymphocytes % 30 % Monocytes % 4 % Eosinophils % 2 % Basophils % 1 % Neutrophils # 5.8 (1.3-7.7) k/uL Lymphocytes # 2.8 (1.0-4.8) k/uL Monocytes # 0.4 (0-1.0) k/uL Eosinophils # 0.2 (0-0.7) k/uL Basophils # 0.0 (0-0.2) k/uL Sodium 138 (137-145) mmol/L Potassium 3.4 L (3.5-5.1) mmol/L Chloride 105 (98-107) mmol/L Carbon Dioxide 28 (22-30) mmol/L Anion Gap 5 mmol/L BUN 11 (7-17) mg/dL Creatinine 0.89 (0.52-1.04) mg/dL Est GFR (CKD-EPI)AfAm >90 (>60 ml/min/1.73 sqM) Est GFR (CKD-EPI)NonAf 87 (>60 ml/min/1.73 sqM) Glucose 127 H (74-99) mg/dL Plasma Lactic Acid Andrea 1.0 (0.7-2.0) mmol/L Calcium 9.1 (8.4-10.2) mg/dL Total Bilirubin 1.1 (0.2-1.3) mg/dL AST 32 (14-36) U/L ALT 49 H (4-34) U/L Alkaline Phosphatase 62 (38-126) U/L Total Protein 6.6 (6.3-8.2) g/dL Albumin 3.7 (3.5-5.0) g/dL Influenza Type A (PCR) (Not Detectd) Influenza Type B (PCR) (Not Detectd) RSV (PCR) (Not Detectd) SARS-CoV-2 (PCR) (Not Detectd) 03/23/24 Range/Units 21:36 WBC (3.8-10.6) k/uL RBC (3.80-5.40) m/uL Hgb (11.4-16.0) gm/dL Hct (34.0-46.0) % MCV (80.0-100.0) fL MCH (25.0-35.0) pg MCHC (31.0-37.0) g/dL RDW (11.5-15.5) % Plt Count (150-450) k/uL MPV Neutrophils % % Lymphocytes % % Monocytes % % Eosinophils % % Basophils % % Neutrophils # (1.3-7.7) k/uL Lymphocytes # (1.0-4.8) k/uL Monocytes # (0-1.0) k/uL Eosinophils # (0-0.7) k/uL Basophils # (0-0.2) k/uL Sodium (137-145) mmol/L Potassium (3.5-5.1) mmol/L Chloride (98-107) mmol/L Carbon Dioxide (22-30) mmol/L Anion Gap mmol/L BUN (7-17) mg/dL Creatinine (0.52-1.04) mg/dL Est GFR (CKD-EPI)AfAm (>60 ml/min/1.73 sqM) Est GFR (CKD-EPI)NonAf (>60 ml/min/1.73 sqM) Glucose (74-99) mg/dL Plasma Lactic Acid Andrea (0.7-2.0) mmol/L Calcium (8.4-10.2) mg/dL Total Bilirubin (0.2-1.3) mg/dL AST (14-36) U/L ALT (4-34) U/L Alkaline Phosphatase (38-126) U/L Total Protein (6.3-8.2) g/dL Albumin (3.5-5.0) g/dL Influenza Type A (PCR) Not Detected (Not Detectd) Influenza Type B (PCR) Not Detected (Not Detectd) RSV (PCR) Not Detected (Not Detectd) SARS-CoV-2 (PCR) Not Detected (Not Detectd) - EKG Data -: EKG Interpreted by [facility] EKG Comments: EKG taken at 23: 04 showing sinus rhythm with sinus arrhythmia. No acute ST segment or T wave abnormalities. Ventricular rate 77, MN interval 136, QRS duration 94, QT/QTc 347/379. - Radiology Data Radiology results: report reviewed, image reviewed Disposition Clinical Impression: Headache Disposition: HOME SELF-CARE Condition: Stable Instructions (If sedation given, give patient instructions): Acute Headache (ED) Additional Instructions: Follow-up with PCP. Return to the ER for any new or worsening symptoms. Is patient prescribed a controlled substance at d/c from ED?: No Referrals: Cosmo Mauricio MD [Primary Care Provider] - 1-2 days Time of Disposition: 23:24
[2024-03-23] MEDS: KETOROLAC 15 MG/ML 1 ML VIAL IVP STA (21:38)
[2024-03-23] MEDS: SODIUM CHLORIDE 0.9% 1,000 ML IV STA (21:38)
[2024-03-23] MEDS: ONDANSETRON 4 MG/2 ML VIAL IVP STA (21:38)
[2024-03-23 21:55] LABS: Basophils % (A) 1 %; Eosinophils # (A) 0.2 k/uL (0-0.7); Eosinophils % (A) 2 %; HCT 40.8 % (34.0-46.0); HGB 13.9 gm/dL (11.4-16.0); Lymphocytes # (A) 2.8 k/uL (1.0-4.8); Lymphocytes % (A) 30 %; MCH 32.4 pg (25.0-35.0); MCHC 33.9 g/dL (31.0-37.0); MCV 95.3 fL (80.0-100.0); Mean Platelet Volume 8.2; Monocytes # (A) 0.4 k/uL (0-1.0); Monocytes % (A) 4 %; Neutrophils # (A) 5.8 k/uL (1.3-7.7); Neutrophils % (A) 62 %; Platelet Count 263 k/uL (150-450); RBC 4.29 m/uL (3.80-5.40); RDW 13.6 % (11.5-15.5); WBC 9.4 k/uL (3.8-10.6)
--- NOTE | 2024-03-23 22:06 | XR ---
EXAMINATION TYPE: XR chest 2V DATE OF EXAM: 03/23/2024 CLINICAL HISTORY: Cough TECHNIQUE: Frontal and lateral views of the chest are obtained. COMPARISON: Prior chest x-ray June 05, 2015 FINDINGS: Overlying bra strap is seen. Low lung volumes redemonstrated. There is no focal air space opacity, pleural effusion, or pneumothorax seen. The cardiac silhouette size is stable and within no rmal limits. The osseous structures are intact. IMPRESSION: No acute pulmonary infiltrate. [facility], , 03/23/2024 10:04 PM
[2024-03-23 22:10] LABS: ALT 49 U/L (4-34); AST 32 U/L (14-36); African American GFR (CKD) >90 (>60 ml/min/1.73 sqM); Albumin 3.7 g/dL (3.5-5.0); Alkaline Phosphatase 62 U/L (38-126); Anion Gap 5 mmol/L; Blood Urea Nitrogen 11 mg/dL (7-17); Calcium 9.1 mg/dL (8.4-10.2); Carbon Dioxide 28 mmol/L (22-30); Chloride 105 mmol/L (98-107); Glucose 127 mg/dL (74-99); Non-African American GFR(CKD) 87 (>60 ml/min/1.73 sqM); Potassium 3.4 mmol/L (3.5-5.1); Sodium 138 mmol/L (137-145); Total Bilirubin 1.1 mg/dL (0.2-1.3); Total Protein 6.6 g/dL (6.3-8.2)
[2024-03-23] MEDS: ACETAMINOPHEN TAB 500 MG TAB PO STA (22:50)
[2024-03-23] MEDS: methylPREDNISolone SOD SUCCI 125 MG/2 ML VIAL IV STA (22:53)
[2024-03-24 00:11] VITALS: BP 120/74; PULSE 72; RESP 18
== END 2024-03-24 00:16 | disposition home or self-care (01) ==
LOC: EC 20:47
DX: R51.9 Headache, unspecified (principal); F17.200 Nicotine dependence, unspecified, uncomplicated; Z88.5 Allergy status to narcotic agent; Z88.6 Allergy status to analgesic agent; Z88.8 Allergy status to other drugs, medicaments and biological substances
CPT/HCPCS: 36415; 93005; 80053; 83605; 85025; 87636; 71046; 99284; 96374; 96375 ×2; 96361 ×3; J2405; J1885; J2919